=== PATIENT | male | born 1950 | race Caucasian/White ===

== ENCOUNTER 2017-01-06 02:00 | Emergency (ER) | payer MEDICARE, OTHER ==
--- NOTE | 2017-01-06 05:51 | NUR ---
see downtime notes for prior event documention. patient is sleeping comfortably at this time. vss. wound dressing is intact, clean, no drainage.
--- NOTE | 2017-01-06 06:29 | NUR ---
spoke with Scarlett from [facility], report given.
--- NOTE | 2017-01-06 06:37 | NUR ---
medresponse slat pickler is 0900.
--- NOTE | 2017-01-06 07:17 | NUR ---
report given to Celso LAY for ashish.
[2017-01-06 07:40] VITALS: BP 128/68
== END 2017-01-06 08:28 ==
LOC: ER 02:00
DX: S01.111A Laceration without foreign body of right eyelid and periocular area, initial encounter (principal); S09.90XA Unspecified injury of head, initial encounter; W01.198A Fall on same level from slipping, tripping and stumbling with subsequent striking against other object, initial encounter; Y93.89 Activity, other specified; Y92.89 Other specified places as the place of occurrence of the external cause; Y99.9 Unspecified external cause status
CPT/HCPCS: 70450; 71010; 72125; 99284; A4606; Z7610

== ENCOUNTER 2017-01-14 15:58 | Inpatient (IN) | payer MEDICARE, OTHER ==
[~2017-01-14] VITALS: Ht 182.9 cm; Wt 61.7 kg
--- NOTE | 2017-01-14 16:09 | NUR ---
pt otoniel from [facility] to er bed 10. c/o r hip pain s/p mechanical fall while ambulating using the rail. states he missed his bed and fell on his r side. no ko. no other cpmplaints. asking for pain medication. awaiting md painter.
--- NOTE | 2017-01-14 17:18 | NUR ---
rai valentine at bedside for eval.
--- NOTE | 2017-01-14 17:18 | NUR ---
Ludwin noyola in [facility] - 01/14/17 at 1720 by GABRIELLE rai barger at bedside for inocencio.
[2017-01-14] MEDS ORDERED: LORAZEPAM INJ 2 MG/ML VIAL ONE ×3 (17:42→22:11)
--- NOTE | 2017-01-14 17:42 | NUR ---
pt is having active seizure. ativan 2mg im given to lt deltoid per rai valentine verbal order.
--- NOTE | 2017-01-14 17:45 | NUR ---
pt placed on seizure precaution.
[2017-01-14] MEDS ORDERED: HYDROMORPHONE INJ 2 MG/ML DISP.SYRIN ONE (18:12)
[2017-01-14 18:15] LABS: BASOPHILS % (AUTO) 0.3 % (0.0-2.0); EOSINOPHILS % (AUTO) 0.3 % (0.0-6.0); HEMATOCRIT 44 % (39-51); LYMPHOCYTES # (AUTO) 1.7 /CMM (0.8-4.8); LYMPHOCYTES % (AUTO) 15.8 % (20.0-44.0); MEAN CORPUSCULAR HEMOGLOBIN 31 PG (26.0-33.0); MEAN CORPUSCULAR HGB CONC 34 g/dl (31.0-36.0); MEAN CORPUSCULAR VOLUME 93 fL (80-96); MONOCYTES # (AUTO) 1.1 /CMM (0.1-1.30); MONOCYTES % (AUTO) 10.5 % (2.0-12.0); NEUTROPHILS # (AUTO) 7.8 /CMM (1.8-8.9); NEUTROPHILS % (AUTO) 73.1 % (43.0-81.0); PLATELET COUNT (AUTO) 169 /CMM (150-450); RDW COEFFICIENT OF VARIATION 11.3 (11.5-15.0); RED BLOOD CELL COUNT(AUTO) 4.79 MIL/uL (4.5-6.0); WHITE BLOOD COUNT (AUTO) 10.6 K/uL (4.3-11.0)
[2017-01-14] MEDS: HYDROMORPHONE HCL 2 MG TABLET PO PRN (18:15)
--- NOTE | 2017-01-14 18:16 | NUR ---
radiology at bedside for rt hip/rt pelvic xray.
[2017-01-14] MEDS ORDERED: HYDROMORPHONE 1 MG/1 ML DISP.SYRIN IV ONE (18:30)
[2017-01-14 18:32] LABS: ALBUMIN 4.1 g/dL (3.4-5.0); BILIRUBIN,DIRECT 0.5 mg/dL (0.0-0.2); BILIRUBIN,TOTAL 1.3 mg/dL (0.2-1.0); CALCIUM, SERUM 8.6 mg/dL (8.5-10.1); CREATININE 1.2 mg/dL (0.6-1.3); POTASSIUM 3.5 mmol/L (3.5-5.1); TOTAL PROTEIN, SERUM 7.1 g/dL (6.4-8.2)
[2017-01-14] MEDS ORDERED: LEVE100023 PO (18:35)
[2017-01-14] MEDS ORDERED: LORA1TAB PO (18:35)
[2017-01-14] MEDS ORDERED: ATOR10TA PO (18:35)
[2017-01-14] MEDS ORDERED: LAMO100T PO (18:35)
[2017-01-14] MEDS ORDERED: GABA-534 PO (18:35)
[2017-01-14] MEDS ORDERED: SERT25TA5 PO (18:35)
[2017-01-14] MEDS ORDERED: OXYC30TA86 PO (18:35)
[2017-01-14] MEDS ORDERED: LORAZEPAM INJ 2 MG/ML VIAL IM ONE (19:00)
[2017-01-14 19:07] LABS: INR 1.13 (0.87-1.13); PROTHROMBIN TIME 12.2 SECS (9.5-12.7)
[2017-01-14 20:50] VITALS: BP 133/80
--- NOTE | 2017-01-14 20:55 | NUR ---
report given to jose. pt awaiting transfer to floor.
--- NOTE | 2017-01-14 21:05 | NUR ---
PAGED UKRAINIAN FOLK ARTS INSTRUCTOR DOCTOR FOR DR. SNIDER
--- NOTE | 2017-01-14 21:34 | NUR ---
PAGED DR MYRIAM SNIDER
--- NOTE | 2017-01-14 22:10 | NUR ---
pt starting to get agitated. restless stating he wants to go home. rai valentine made aware.
--- NOTE | 2017-01-14 22:15 | NUR ---
DR AGATHA ARREOLA.
[2017-01-14] MEDS ORDERED: LORAZEPAM INJ 2 MG/ML VIAL IV ONE (22:30)
--- NOTE | 2017-01-14 22:50 | NUR ---
RN ADMITTING TELE NOTES ADMITTED 66 YR OLD MALE, AOX4 ON RM AIR NO DISTRESS, C/O OF R-HIP PAIN, S/P FALL, C/C UPON COMING TO ER IS R-HIP PAIN, AFTER GLF ON THE R-HIP, C/O PAIN IN ER DILAUDID AND ATIVAN GIVEN IN ER, PT HAD EPISODE OF SEIZURE, IMMEDIATE FALL AND SEIZURE PRECAUTION MEASURES UNDER IN PLACE PER PROTOCOL. PT ON BED REST UNABLE TO AMBULATE D/T R-HIP FX, SKIN INTACT, WITH SLIGHT SACRAL REDNESS NOTED, PICS TAKEN AND PLACED IN PT CHART. KEPT CLEAN AND DRY, ALL NEEDS MET, ADMITTING DR YESSENIA BADILLO NOTIFIED WITH ADMITTING ORDERS CARRIED OUT. PAIN MEDICATION GIVEN. PT APPEARS COMFORTABLE ABLE TO SLEEP WITH NO PAIN V/S STABLE.
[2017-01-14 23:00] VITALS: BP 133/80
[2017-01-14] MEDS ORDERED: IPRA3AMP NEB (23:20)
[2017-01-14] MEDS ORDERED: HYDR4TAB57 PO (23:20)
[2017-01-14] MEDS ORDERED: OXYC20TA73 PO (23:20)
[2017-01-14] MEDS ORDERED: ATOR20TA PO (23:20)
[2017-01-14] MEDS ORDERED: LEVE500T20 PO (23:20)
[2017-01-14] MEDS ORDERED: ASPI81TA2 PO (23:20)
[2017-01-14] MEDS ORDERED: LAMO200T39 PO (23:20)
[2017-01-14] MEDS ORDERED: PHEN100C4 PO (23:20)
[2017-01-14] MEDS ORDERED: LORAZEPAM 1 MG TABLET PO SCH (23:30)
[2017-01-15] VITALS (7 sets, daily range): BP systolic 122–156; BP diastolic 74–95
[2017-01-15] MEDS ORDERED: LORAZEPAM 1 MG TABLET ONE (00:25)
[2017-01-15] MEDS: HYDROMORPHONE HCL 2 MG TABLET PO PRN ×2 (00:31→05:44)
--- NOTE | 2017-01-15 06:38 | NUR ---
RN CLOSING TELE NOTES ENDORSED 66 YR OLD MALE, AOX4 ON RM AIR NO DISTRESS, C/O OF R-HIP PAIN, S/P FALL, C/C UPON COMING TO ER IS R-HIP PAIN, AFTER GLF ON THE R-HIP, C/O PAIN IN ER DILAUDID AND ATIVAN GIVEN IN ER, PT HAD EPISODE OF SEIZURE, IMMEDIATE FALL AND SEIZURE PRECAUTION MEASURES UNDER IN PLACE PER PROTOCOL. PT ON BED REST UNABLE TO AMBULATE D/T R-HIP FX, SKIN INTACT, WITH SLIGHT SACRAL REDNESS NOTED, PICS TAKEN AND PLACED IN PT CHART. KEPT CLEAN AND DRY, ALL NEEDS MET, ADMITTING DR YESSENIA BADILLO NOTIFIED WITH ADMITTING ORDERS CARRIED OUT. PAIN MEDICATION GIVEN. PT APPEARS COMFORTABLE ABLE TO SLEEP WITH NO PAIN V/S STABLE.
[2017-01-15 07:01] LABS: BASOPHILS % (AUTO) 0.2 % (0.0-2.0); EOSINOPHILS % (AUTO) 0.2 % (0.0-6.0); HEMATOCRIT 43 % (39-51); HEMOGLOBIN 14.5 g/dL (13.5-17.5); LYMPHOCYTES # (AUTO) 1.8 /CMM (0.8-4.8); LYMPHOCYTES % (AUTO) 18.2 % (20.0-44.0); MEAN CORPUSCULAR HEMOGLOBIN 32 PG (26.0-33.0); MEAN CORPUSCULAR HGB CONC 34 g/dl (31.0-36.0); MEAN CORPUSCULAR VOLUME 94 fL (80-96); MONOCYTES % (AUTO) 10.5 % (2.0-12.0); NEUTROPHILS % (AUTO) 70.9 % (43.0-81.0); PLATELET COUNT (AUTO) 153 /CMM (150-450); RDW COEFFICIENT OF VARIATION 12.2 (11.5-15.0); RED BLOOD CELL COUNT(AUTO) 4.57 MIL/uL (4.5-6.0); WHITE BLOOD COUNT (AUTO) 9.9 K/uL (4.3-11.0)
[2017-01-15 07:19] LABS: ALBUMIN 3.8 g/dL (3.4-5.0); BILIRUBIN,TOTAL 1.4 mg/dL (0.2-1.0); CALCIUM, SERUM 8.4 mg/dL (8.5-10.1); CREATININE 0.7 mg/dL (0.6-1.3); POTASSIUM 3.8 mmol/L (3.5-5.1); TOTAL PROTEIN, SERUM 6.7 g/dL (6.4-8.2)
[2017-01-15 07:46] LABS: THYROID STIMULATING HORMONE 0.728 uIU/mL (0.358-3.74)
--- NOTE | 2017-01-15 08:00 | NUR ---
GROUP LEADER SEMICONDUCTOR TESTING NOTES PATIENT IN BED SLEEPING AOX4 ON RM AIR NO DISTRESS, C/O OF R-HIP PAIN BACK PAIN AND BILATERAL LEG PAIN, S/P FALL, PATIENT STABLE AT THIS TIME RN AWAITING ORDERED , PAIN MEDICATION D/C DR. MCKEON NOTIFIED PAIN MEDICATION GIVEN. PT BED IN LOWEST POSTION CALL LIGHT WITH IN REACH RN WILL CONTINUE TO FOLLOW
[2017-01-15] MEDS ORDERED: IPRATROPIUM NEB FS 0.5 MG/2.5 ML AMPUL.NEB NEB PRN (08:30)
[2017-01-15] MEDS: GABAPENTIN 300 MG CAPSULE PO SCH ×3 (08:56→16:43)
[2017-01-15] MEDS: PHENYTOIN EXTENDED RELEASE 100 MG CAPSULE PO SCH ×2 (08:56→16:43)
[2017-01-15] MEDS: LamoTRIgine 100 MG TABLET PO SCH ×2 (08:56→16:43)
[2017-01-15] MEDS: oxyCODONE HCL SR 20MG TAB.SR.12H PO SCH ×2 (08:56→20:13)
[2017-01-15] MEDS: LEVETIRACETAM (250 MG) 250 MG TABLET PO SCH ×2 (08:57→21:05)
[2017-01-15] MEDS: SERTRALINE HCL 25 MG TABLET PO SCH (08:57)
[2017-01-15] MEDS ORDERED: HYDROMORPHONE 1 MG/1 ML DISP.SYRIN IV PRN (10:00)
--- NOTE | 2017-01-15 10:00 | NUR ---
RN NOTE PATIENT COMPLAINING OF PAIN DILAUDID GIVEN FOR PRN PATIENT PATIENT STABLE AT THIS TIME
[2017-01-15] MEDS: HYDROMORPHONE INJ 2 MG/ML DISP.SYRIN IV PRN ×3 (11:36→23:37)
[2017-01-15] MEDS: LORAZEPAM 1 MG TABLET PO SCH ×2 (13:06→21:05)
[2017-01-15] MEDS ORDERED: ALBUTEROL FS 2.5 MG/3 ML VIAL.NEB NEB PRN (13:30)
--- NOTE | 2017-01-15 18:00 | NUR ---
RN NOTE PATIENT COMPLAINING OF PAIN DILAUDID GIVEN FOR PRN PATIENT PATIENT STABLE AT THIS TIME
--- NOTE | 2017-01-15 18:50 | NUR ---
RN NOTE SURGERY ORDERED FOR PATIENT RN UNABLE TO OBTAIN CONSENT FOR SURGERY AT THIS TIME CHARGE NURSE NBA NOTIFIED , RN WILL ENDORSE CARE TO PM RN , TO OBTAIN SIGNATURE.
--- NOTE | 2017-01-15 19:00 | NUR ---
RN CLOSING NOTE PATIENT STABLE AT THIS TIME NO DISTRESS NOTED PATIENT NEEDS ATTENDED, ALL CARE RENDERED , MEDICATION ADMINISTERED UPON PATIENTS REQUEST, CALL LIGHT WITHIN REACH PATIENT VERBALIZE IN PAIN RN WILL ENDORSES CARE TO PM RN
--- NOTE | 2017-01-15 20:00 | NUR ---
CARROTER NOTES RECEIVED PTS ON BED AWAKE ALERT AND VERBALLY RESPONSIVE . ON TELE SR ON THE MONITOR , NO SOB NO DISTRESS NOTED C/O PAIN ON R HIP , PAIN MGT GIVEN ORDERED. V/S STABLE AFEBRILE ALL DUE MEDS GIVEN ORDERED , ALL NEEDS ATTENDED TOO CALL LIGHT WITHIN REACH , KEPT PTS CLEAN DRY AND COMFORTABLE , WILL CONTINUE TO MONITOR PTS.NON WEIGHT BEARING ON RLE MAINTAINED.
[2017-01-15] MEDS: ATORVASTATIN 10 MG TABLET PO SCH (21:05)
[2017-01-15] MEDS ORDERED: NS 0.9% IV STA (21:45)
[2017-01-15] MEDS ORDERED: PHENYTOIN SODIUM IV STA (21:45)
[2017-01-15] MEDS ORDERED: PHENYTOIN SODIUM IV 50 MG/ML VIAL ONE (22:13)
[2017-01-15] MEDS: IV D5/ 0.9% NACL 1,000 ML IV PRN (22:22)
[2017-01-16] VITALS: BP_SYST 133; BP_DIAS 90; BP_DIAS 91
--- NOTE | 2017-01-16 | NUR ---
telegraphic instrument supervisor notes npo post mn instructed pts verbalized understanding,consent for procedure obtained.
--- NOTE | 2017-01-16 02:40 | NUR ---
telex operator notes body check done and care rendered , pts on ivf of d5ns at 125cc/hr infusing well, will continue to monitor pts.
[2017-01-16 04:00] VITALS: BP 109/86
[2017-01-16] MEDS: HYDROMORPHONE INJ 2 MG/ML DISP.SYRIN IV PRN ×5 (05:23→23:45)
[2017-01-16] MEDS: LORAZEPAM 1 MG TABLET PO SCH ×3 (05:23→20:54)
--- NOTE | 2017-01-16 05:30 | NUR ---
telephone instrument supervisor notes when trying to waste 1 mg of dilaudid in omnicell I was not able to put 1 mg in the waste window before pressing record waste. I tried to fix with charge nurse, but was still unable to waste on omnicell. dilaudid 1 mg iv push given as ordered for right hip pain and the other 1 mg wasted in designated container in med room with charge nurse Marian RN as witness.
--- NOTE | 2017-01-16 06:35 | NUR ---
telesales professional notes pts on bed awake and responsive , npo maintained , remains on ivf d5ns at 125cc/hr infusing well , v/s stable , will endorse to rn day shift for continuity of care.
[2017-01-16 06:38] LABS: BASOPHILS % (AUTO) 0.4 % (0.0-2.0); EOSINOPHILS # (AUTO) 0.1 /CMM (0.0-0.7); EOSINOPHILS % (AUTO) 1.2 % (0.0-6.0); HEMATOCRIT 41 % (39-51); HEMOGLOBIN 13.7 g/dL (13.5-17.5); LYMPHOCYTES # (AUTO) 2.2 /CMM (0.8-4.8); LYMPHOCYTES % (AUTO) 24.3 % (20.0-44.0); MEAN CORPUSCULAR HEMOGLOBIN 32 PG (26.0-33.0); MEAN CORPUSCULAR HGB CONC 34 g/dl (31.0-36.0); MEAN CORPUSCULAR VOLUME 95 fL (80-96); MONOCYTES # (AUTO) 1.1 /CMM (0.1-1.30); MONOCYTES % (AUTO) 11.5 % (2.0-12.0); NEUTROPHILS # (AUTO) 5.7 /CMM (1.8-8.9); NEUTROPHILS % (AUTO) 62.6 % (43.0-81.0); PLATELET COUNT (AUTO) 141 /CMM (150-450); RDW COEFFICIENT OF VARIATION 12.4 (11.5-15.0); RED BLOOD CELL COUNT(AUTO) 4.31 MIL/uL (4.5-6.0); WHITE BLOOD COUNT (AUTO) 9.2 K/uL (4.3-11.0)
[2017-01-16 06:45] LABS: ALBUMIN 3.4 g/dL (3.4-5.0); BILIRUBIN,TOTAL 0.9 mg/dL (0.2-1.0); CREATININE 0.7 mg/dL (0.6-1.3); MAGNESIUM 2.1 mg/dL (1.8-2.4); PHOSPHORUS 3.2 mg/dL (2.5-4.9); POTASSIUM 3.8 mmol/L (3.5-5.1); TOTAL PROTEIN, SERUM 6.3 g/dL (6.4-8.2)
[2017-01-16 08:00] VITALS: BP 135/81
[2017-01-16] MEDS: LEVETIRACETAM (250 MG) 250 MG TABLET PO SCH ×2 (08:26→20:53)
[2017-01-16] MEDS: PHENYTOIN EXTENDED RELEASE 100 MG CAPSULE PO SCH ×3 (08:26→18:15)
[2017-01-16] MEDS: LamoTRIgine 100 MG TABLET PO SCH ×2 (08:26→18:15)
[2017-01-16] MEDS: oxyCODONE HCL SR 20MG TAB.SR.12H PO SCH ×2 (08:27→20:53)
[2017-01-16] MEDS: GABAPENTIN 300 MG CAPSULE PO SCH ×3 (08:27→18:15)
[2017-01-16] MEDS: SERTRALINE HCL 25 MG TABLET PO SCH (08:27)
--- NOTE | 2017-01-16 08:30 | NUR ---
INITIAL PRESS BRAKE OPERATOR NOTES PATIENT IN BED AWAKE AND ALERT AOX4 ON RM AIR NO DISTRESS, C/O OF R-HIP PAIN BACK PAIN AND BILATERAL LEG PAIN, S/P FALL, PATIENT STABLE AT THIS TIME RN AWAITING ORDERED , PAIN MEDICATION GIVEN. PT BED IN LOWEST POSITION CALL LIGHT WITH IN REACH RN WILL CONTINUE TO FOLLOW
[2017-01-16 14:00] VITALS: BP 133/76
[2017-01-16 15:33] LABS: APPEARANCE,URINE SL CLOUDY (CLEAR); BILIRUBIN,URINE NEGATIVE (NEGATIVE); BLOOD, URINE 1+ Ery/uL (NEGATIVE); COLOR,URINE DARK YELLO (YELLOW); KETONES,URINE NEGATIVE (NEGATIVE); LEUKOCYTE ESTERASE ,URINE 3+ (NEGATIVE); NITRITE, URINE NEGATIVE (NEGATIVE); PROTEIN,URINE TRACE mg/dl (NEGATIVE); UGLUCOSE NEGATIVE (NEGATIVE)
[2017-01-16 15:57] LABS: BACTERIA,URINE Few /HPF (None Seen); SQUAMOUS EPITHELIAL CELL,UR Few /HPF (None Seen)
[2017-01-16 16:00] VITALS: BP 133/70
--- NOTE | 2017-01-16 18:35 | NUR ---
rn note rn recieved a call from md hall in regards to patient urine culture results stating uti md. request that rn contacted md melendez for orders , rn contact md melendez for orders orders Levaquin 500 mg ivpb daily. rn placed order and read back order for confirmation . rn will continue to follow.
[2017-01-16] MEDS: IV D5/ 0.9% NACL 1,000 ML IV PRN (18:58)
[2017-01-16] MEDS ORDERED: LEVOFLOXACIN 500 MG /D5W 100ML 500 MG in PREMIX 1 EA IV SCH (19:00)
--- NOTE | 2017-01-16 19:30 | NUR ---
MS RN INITIAL NOTES RECEIVED PATIENT ON BED, AWAKE AND ALERT, ABLE TO VERBALIZE NEEDS. PATIENT TOLERATING ROOM AIR WELL, NO SOB OR RESPIRATORY DISTRESS. IV SITE PATENT AND INTACT, SITE FLUSHED WITH NS, FREE FROM ANY S/S OF INFILTRATION OR PHLEBITIS. PLAN OF CARE DISCUSSED WITH THE PATIENT, WHO VERBALIZES UNDERSTANDING REGARDING THE PLAN. CALL LIGHT LEFT WITHIN EASY REACH. BED IN LOWEST AND LOCKED POSITION. WILL CONTINUE TO CLOSELY MONITOR
[2017-01-16 20:00] VITALS: BP 134/96
[2017-01-16] MEDS: ATORVASTATIN 10 MG TABLET PO SCH (20:57)
--- NOTE | 2017-01-16 21:00 | NUR ---
RN NOTES PATIENT NOTED TO REMOVE CONDOM CATHETER. PATIENT INSTRUCTED NOT TO TOUCH THE CONDOM CATHETER. ALL QUESTIONS REGARDING CONDOM CATHETER ANSWERED. WILL MONITOR CLOSELY
[2017-01-17 04:00] VITALS: BP_SYST 134; BP_SYST 136; BP_DIAS 88; BP_DIAS 96
[2017-01-17] MEDS: LORAZEPAM 1 MG TABLET PO SCH ×3 (04:21→22:55)
[2017-01-17] MEDS: IV D5/ 0.9% NACL 1,000 ML IV PRN ×2 (04:21→22:58)
[2017-01-17] MEDS ORDERED: BACITRACIN 50000 UNITS/VIAL ONE (06:39)
[2017-01-17] MEDS ORDERED: BUPIVACAINE MPF 0.5% W/EPI INJ 30 ML VIAL ONE (06:39)
[2017-01-17] MEDS ORDERED: KETOROLAC TROMETHAMINE INJ 30 MG/ML VIAL ONE (06:39)
[2017-01-17 06:47] LABS: BASOPHILS % (AUTO) 0.4 % (0.0-2.0); EOSINOPHILS # (AUTO) 0.1 /CMM (0.0-0.7); EOSINOPHILS % (AUTO) 2.4 % (0.0-6.0); HEMATOCRIT 39 % (39-51); HEMOGLOBIN 13.4 g/dL (13.5-17.5); LYMPHOCYTES # (AUTO) 1.7 /CMM (0.8-4.8); LYMPHOCYTES % (AUTO) 27.7 % (20.0-44.0); MEAN CORPUSCULAR HEMOGLOBIN 32 PG (26.0-33.0); MEAN CORPUSCULAR HGB CONC 34 g/dl (31.0-36.0); MEAN CORPUSCULAR VOLUME 94 fL (80-96); MONOCYTES # (AUTO) 0.8 /CMM (0.1-1.30); MONOCYTES % (AUTO) 13.1 % (2.0-12.0); NEUTROPHILS # (AUTO) 3.5 /CMM (1.8-8.9); NEUTROPHILS % (AUTO) 56.4 % (43.0-81.0); PLATELET COUNT (AUTO) 141 /CMM (150-450); RDW COEFFICIENT OF VARIATION 12.4 (11.5-15.0); RED BLOOD CELL COUNT(AUTO) 4.18 MIL/uL (4.5-6.0); WHITE BLOOD COUNT (AUTO) 6.3 K/uL (4.3-11.0)
--- NOTE | 2017-01-17 06:48 | NUR ---
RN NOTES PATIENT PICKED UP FROM SURGERY TEAM, ALL CONSENTS SIGNED, PATIENT NPO SINCE [place]. PATIENT LEFT UNIT VIA GURNEY IN STABLE CONDITION
[2017-01-17] MEDS ORDERED: FENTANYL PF 100MCG/2ML AMPUL ONE (06:57)
[2017-01-17] MEDS ORDERED: ROCURONIUM BROMIDE 50 MG/5 ML ONE (06:58)
[2017-01-17] MEDS ORDERED: SUCCINYLCHOLINE CHLORIDE 20 MG/ML VIAL ONE (06:58)
[2017-01-17] MEDS ORDERED: MIDAZOLAM HCL 2 MG/2ML VIAL ONE (06:58)
[2017-01-17 07:26] LABS: BILIRUBIN,TOTAL 1.2 mg/dL (0.2-1.0); CALCIUM, SERUM 7.8 mg/dL (8.5-10.1); CREATININE 0.6 mg/dL (0.6-1.3); POTASSIUM 3.6 mmol/L (3.5-5.1); TOTAL PROTEIN, SERUM 5.8 g/dL (6.4-8.2)
[2017-01-17] MEDS ORDERED: TRANEXAMIC ACID 3,000 MG in SODIUM CHLORIDE IRRIG SOLUTION 70 ML IR ONE (07:30)
--- NOTE | 2017-01-17 09:45 | NUR ---
RN NOTES PATIENT CAME BACK FROM SURGERY VIA HOSPITAL BED. VITAL SIGN STABLE, ZW=827/89, P=91, R=18, T=98.0. DENIES PAIN AT THIS TIME. NO ACUTE DISTRESS, NO SOB NOTED. KEPT PATIENT SAFE AND COMFORTABLE. BED LOCKED, LOW POSITION, SIDERAILS UPX2. CALL LIGHT IN REACH. WILL CONTINUE TO MONITOR ACCORDINGLY
[2017-01-17 10:00] VITALS: BP 128/89
[2017-01-17] MEDS: PHENYTOIN EXTENDED RELEASE 100 MG CAPSULE PO SCH ×3 (10:21→17:04)
[2017-01-17] MEDS: GABAPENTIN 300 MG CAPSULE PO SCH ×3 (10:21→17:04)
[2017-01-17] MEDS: oxyCODONE HCL SR 20MG TAB.SR.12H PO SCH ×2 (10:21→22:55)
[2017-01-17] MEDS: SERTRALINE HCL 25 MG TABLET PO SCH (10:23)
[2017-01-17] MEDS: LEVETIRACETAM (250 MG) 250 MG TABLET PO SCH ×2 (10:23→22:54)
[2017-01-17] MEDS: LamoTRIgine 100 MG TABLET PO SCH ×2 (10:24→17:03)
[2017-01-17 11:06] VITALS: BP 128/89
[2017-01-17] MEDS: HYDROMORPHONE INJ 2 MG/ML DISP.SYRIN IV PRN ×2 (11:43→17:14)
[2017-01-17] MEDS: CEFAZOLIN 2 GM in IV NS 0.9% 50 ML IV SCH ×2 (13:27→21:00)
[2017-01-17] MEDS: HYDROMORPHONE HCL 2 MG TABLET PO PRN (14:55)
--- NOTE | 2017-01-17 15:00 | NUR ---
RN NOTES seen by PT, evaluated patient. per PT, maximum assist 2 person.
[2017-01-17 16:00] VITALS: BP 128/81
--- NOTE | 2017-01-17 16:59 | NUR ---
RN NOTES VERIFIED WITH PHARMACY,JOEL FANG TO GIVE CARIDADNOX.
[2017-01-17] MEDS ORDERED: RIVAROXABAN 10 MG TABLET PO SCH (17:00)
[2017-01-17] MEDS: ENOXAPARIN SODIUM 40 MG/0.4 ML DISP.SYRIN SQ SCH (17:06)
--- NOTE | 2017-01-17 19:25 | NUR ---
RN CLOSING NOTES NO CHANGE IN PATIENT'S CONDITION. NO ACUTE DISTRESS, NO SOB NOTED. ALL NEEDS ATTENDED AND PROVIDED. KEPT PATIENT SAFE AND COMFORTABLE. SEIZURE PRECAUTION OBSERVED, PADDED BED RAILS. BED IN LOW POSITION, LOCKED. CALL LIGHT IN REACH. ENDORSED TO NIGHT RN FOR HANS.
--- NOTE | 2017-01-17 19:30 | NUR ---
RN INITIAL NOTES RECEIVED PATIENT IN BED, AWAKE, ALERT AND ORIENTED X 2 TO NAME AND NAME OF THE PRESIDENT, BUT UNABLE TO DESCRIBE CURRENT LOCATION, FORGETFUL. PATIENT REORIENTED NEEDED. PATIENT TOLERATING ROOM AIR WELL, FREE FROM ANY S/S OF RESPIRATORY DISTRESS. LEFT FA IV NOTED TO BE DISLODGED WITH CANNULA INTACT, PRESSURE DRESSING APPLIED, WILL INSERT NEW IV. RIGHT HIP NOTED WITH SURGICAL DRESSING, CLEAN, DRY AND INTACT. BILATERAL LOWER EXTREMITIES NOTED WITH IMMOBILIZER DEVICE, BLE ASSESSED. NOTED WITH OAKES CATHETER DRAINING CLEAR JAYE COLORED URINE TO DRAINAGE BAG VIA GRAVITY. PLAN OF CARE DISCUSSED WITH THE PATIENT, WHO VERBALIZES UNDERSTANDING REGARDING THE PLAN OF CARE. WILL REINFORCE PATIENT TEACHING NEEDED. BED IN LOWEST AND LOCKED POSITION, CALL LIGHT LEFT WITHIN EASY REACH
[2017-01-17 20:00] VITALS: BP 153/93
[2017-01-17] MEDS: ATORVASTATIN 10 MG TABLET PO SCH (22:54)
[2017-01-17] MEDS ORDERED: CEFAZOLIN 2 GM ONE (23:02)
[2017-01-18 04:00] VITALS: BP 131/82
--- NOTE | 2017-01-18 04:48 | NUR ---
RN NOTES - MEDICATION OVERRIDE ANCEF OVERRIDE PERFORMED BY CHARGE NURSE PARISH. IV PIGGYBACK NOT LOCATED IN REFRIGERATOR OR CASSETTE.
[2017-01-18] MEDS ORDERED: CEFAZOLIN 2 GM ONE (04:53)
[2017-01-18] MEDS: CEFAZOLIN 2 GM in IV NS 0.9% 50 ML IV SCH ×3 (05:00→21:10)
[2017-01-18] MEDS: LORAZEPAM 1 MG TABLET PO SCH ×3 (05:01→21:03)
[2017-01-18 06:46] LABS: BILIRUBIN,TOTAL 2.5 mg/dL (0.2-1.0); CALCIUM, SERUM 7.5 mg/dL (8.5-10.1); CREATININE 0.6 mg/dL (0.6-1.3); POTASSIUM 2.9 mmol/L (3.5-5.1); TOTAL PROTEIN, SERUM 5.6 g/dL (6.4-8.2)
[2017-01-18 06:48] LABS: BASOPHILS % (AUTO) 0.1 % (0.0-2.0); EOSINOPHILS % (AUTO) 0.2 % (0.0-6.0); HEMATOCRIT 35 % (39-51); HEMOGLOBIN 11.7 g/dL (13.5-17.5); LYMPHOCYTES # (AUTO) 1.2 /CMM (0.8-4.8); LYMPHOCYTES % (AUTO) 11.9 % (20.0-44.0); MEAN CORPUSCULAR HEMOGLOBIN 32 PG (26.0-33.0); MEAN CORPUSCULAR HGB CONC 34 g/dl (31.0-36.0); MEAN CORPUSCULAR VOLUME 95 fL (80-96); MONOCYTES # (AUTO) 1.3 /CMM (0.1-1.30); MONOCYTES % (AUTO) 12.7 % (2.0-12.0); NEUTROPHILS # (AUTO) 7.7 /CMM (1.8-8.9); NEUTROPHILS % (AUTO) 75.1 % (43.0-81.0); PLATELET COUNT (AUTO) 170 /CMM (150-450); RDW COEFFICIENT OF VARIATION 12.4 (11.5-15.0); RED BLOOD CELL COUNT(AUTO) 3.66 MIL/uL (4.5-6.0); WHITE BLOOD COUNT (AUTO) 10.2 K/uL (4.3-11.0)
--- NOTE | 2017-01-18 07:00 | NUR ---
RN CLOSING NOTES PATIENT RESTING COMFORTABLY IN BED. PATIENT DENIES NEED FOR ADDITIONAL PAIN MANAGEMENT AT THIS TIME. IMMOBILIZER REMAINS IN PLACE, RIGHT HIP DRESSING CLEAN DRY AND INTACT. PATIENT ENDORSED TO THE AM SHIFT NURSE FOR HANS
--- NOTE | 2017-01-18 07:15 | NUR ---
MS RN NOTE: RECEIVED PT RESTING IN BED, EASILY AROUSABLE TO NAME. A&OX2 WITH PERIODS OF CONFUSION. ON RA, RESPIRATIONS EVEN AND UNLABORED WITH NO SOB NOTED. LFA INTACT AND PATENT WITH D5NS RUNNING AT 125 ML/HR. OAKES CATH DRAINING TO GRAVITY WITH CLEAR JAYE URINE. RIGHT HIP NOTED WITH SURGICAL DRESSING, CLEAN, DRY AND INTACT. BLE IMMOBILIZER DEVICE WITH BLE PULSES PRESENT. SEIZURE PRECAUTIONS BED PADDING IN PLACE. BED LOW, LOCKED, X2 SIDE RAILS UP AND CALL LIGHT WITHIN REACH. WILL CONT TO MONITOR.
[2017-01-18 08:00] VITALS: BP 141/85
[2017-01-18] MEDS: SERTRALINE HCL 25 MG TABLET PO SCH (09:29)
[2017-01-18] MEDS: POTASSIUM CHLORIDE 20 MEQ TAB.PRT.SR PO SCH ×4 (09:29→13:00)
[2017-01-18] MEDS: LEVETIRACETAM (250 MG) 250 MG TABLET PO SCH ×2 (09:29→21:10)
[2017-01-18] MEDS: PHENYTOIN EXTENDED RELEASE 100 MG CAPSULE PO SCH ×3 (09:29→16:39)
[2017-01-18] MEDS: oxyCODONE HCL SR 20MG TAB.SR.12H PO SCH ×2 (09:29→21:04)
[2017-01-18] MEDS: GABAPENTIN 300 MG CAPSULE PO SCH ×3 (09:29→16:39)
[2017-01-18] MEDS: LamoTRIgine 100 MG TABLET PO SCH ×2 (09:30→16:39)
[2017-01-18] MEDS: IV D5/ 0.9% NACL 1,000 ML IV PRN (09:33)
[2017-01-18] MEDS: HYDROMORPHONE INJ 2 MG/ML DISP.SYRIN IV PRN ×2 (10:05→19:45)
[2017-01-18] MEDS ORDERED: CEFTRIAXONE 1 G in IV D5W 50 ML IV SCH (11:00)
--- NOTE | 2017-01-18 14:00 | NUR ---
MS RN NOTE: FOUND RIGHT HIP DRESSING REMOVED. WOUND DRY, CLEAN WITH NO REDNESS OR DRAINAGE NOTED. NO NEW ORDERS. WILL CONT TO MONITOR.
[2017-01-18 16:00] VITALS: BP 124/78
[2017-01-18] MEDS: ENOXAPARIN SODIUM 40 MG/0.4 ML DISP.SYRIN SQ SCH (16:44)
--- NOTE | 2017-01-18 19:00 | NUR ---
MS RN NOTE: NO ACUTE CHANGES DURING SHIFT. PT REMAINED A&OX2 WITH PERIODS OF CONFUSION. LFA INTACT AND PATENT WITH D5NS RUNNING AT 125 ML/HR. OAKES CATH DRAINING TO GRAVITY WITH CLEAR JAYE URINE. IMMOBILIZER AND DVT PUMPS IN PLACE. SEIZURE PRECAUTIONS ORDERED. ORDERS CARRIED OUT. WILL ENDORSE TO SHOE PATTERNMAKER NURSE FOR HANS.
--- NOTE | 2017-01-18 19:30 | NUR ---
Secure Abduction pillow as intended and reinforce to patient as to its function.Reported remember being told what the function was,no problems
--- NOTE | 2017-01-18 19:30 | NUR ---
Received patient in the bed.No unusual signs or symptoms observed or reported,except for the c/o right hip pain.Reporting nurse reported that dressing on right hip came off during AM activity.Inquired if MD was informed since it was the original dressing.She said she did not.She spoke to PM Charge Nurse who said it was ok.Right Surgical,hip wound is approximate with c/o tenderness but C/D/I.No redness or swelling observed at the site.
[2017-01-18 20:00] VITALS: BP 139/82
[2017-01-18] MEDS: ATORVASTATIN 10 MG TABLET PO SCH (21:27)
--- NOTE | 2017-01-18 23:00 | NUR ---
Patient has fell asleep after receiving his medications,no problems
--- NOTE | 2017-01-19 03:02 | NUR ---
Requested and received pain medication.Medicated with Dilaudid 1 mg ivp as per MD'd order's,tolerated well.
[2017-01-19] MEDS: HYDROMORPHONE INJ 2 MG/ML DISP.SYRIN IV PRN (03:03)
[2017-01-19 04:00] VITALS: BP 108/74
[2017-01-19] MEDS ORDERED: CEFAZOLIN 2 GM ONE (05:09)
[2017-01-19] MEDS: CEFAZOLIN 2 GM in IV NS 0.9% 50 ML IV SCH (05:14)
[2017-01-19] MEDS: LORAZEPAM 1 MG TABLET PO SCH ×2 (05:44→12:42)
[2017-01-19 06:32] LABS: BASOPHILS % (AUTO) 0.3 % (0.0-2.0); EOSINOPHILS % (AUTO) 0.4 % (0.0-6.0); HEMATOCRIT 32 % (39-51); HEMOGLOBIN 10.9 g/dL (13.5-17.5); LYMPHOCYTES # (AUTO) 1.4 /CMM (0.8-4.8); MEAN CORPUSCULAR HEMOGLOBIN 32 PG (26.0-33.0); MEAN CORPUSCULAR HGB CONC 34 g/dl (31.0-36.0); MEAN CORPUSCULAR VOLUME 95 fL (80-96); MONOCYTES % (AUTO) 10.4 % (2.0-12.0); NEUTROPHILS # (AUTO) 7.5 /CMM (1.8-8.9); NEUTROPHILS % (AUTO) 74.9 % (43.0-81.0); PLATELET COUNT (AUTO) 160 /CMM (150-450); RDW COEFFICIENT OF VARIATION 12.6 (11.5-15.0); RED BLOOD CELL COUNT(AUTO) 3.38 MIL/uL (4.5-6.0)
[2017-01-19 06:56] LABS: ALBUMIN 2.5 g/dL (3.4-5.0); BILIRUBIN,TOTAL 1.5 mg/dL (0.2-1.0); CALCIUM, SERUM 7.8 mg/dL (8.5-10.1); CREATININE 0.6 mg/dL (0.6-1.3); MAGNESIUM 1.7 mg/dL (1.8-2.4); POTASSIUM 3.7 mmol/L (3.5-5.1); TOTAL PROTEIN, SERUM 5.1 g/dL (6.4-8.2)
[2017-01-19 08:00] VITALS: BP 149/98
[2017-01-19] MEDS ORDERED: POTASSIUM CHLORIDE 20 MEQ TAB.PRT.SR PO SCH (09:00)
[2017-01-19] MEDS: LamoTRIgine 100 MG TABLET PO SCH (10:05)
[2017-01-19] MEDS: GABAPENTIN 300 MG CAPSULE PO SCH ×2 (10:05→12:42)
[2017-01-19] MEDS: oxyCODONE HCL SR 20MG TAB.SR.12H PO SCH (10:05)
[2017-01-19] MEDS: LEVETIRACETAM (250 MG) 250 MG TABLET PO SCH (10:05)
[2017-01-19] MEDS: SERTRALINE HCL 25 MG TABLET PO SCH (10:06)
[2017-01-19] MEDS: PHENYTOIN EXTENDED RELEASE 100 MG CAPSULE PO SCH ×2 (10:11→12:42)
[2017-01-19] MEDS: Magnesium 1GM/D5W 100ML PREMIX 100 ML IV SCH ×2 (12:43→14:27)
[2017-01-19 14:00] VITALS: BP 135/98
[2017-01-19] MEDS: HYDROMORPHONE HCL 2 MG TABLET PO PRN (15:52)
== END 2017-01-19 16:41 | DRG 469 ==
LOC: ER 16:00 → TELE1 22:30 → MEDSG1 01-16 10:49
PROVIDERS: ADMIT Internal Medicine Hematology & Oncology; ATTEND Internal Medicine Hematology & Oncology
PROC: 0SRR0JZ Replacement of Right Hip Joint, Femoral Surface with Synthetic Substitute, Open Approach (ICD-10-PCS; principal; 2017-01-17 07:00)
DX: S72.011A Unspecified intracapsular fracture of right femur, initial encounter for closed fracture (principal); N17.0 Acute kidney failure with tubular necrosis; J86.0 Pyothorax with fistula; E46 Unspecified protein-calorie malnutrition; N39.0 Urinary tract infection, site not specified; D69.6 Thrombocytopenia, unspecified; G40.409 Other generalized epilepsy and epileptic syndromes, not intractable, without status epilepticus; W19.XXXA Unspecified fall, initial encounter; D63.8 Anemia in other chronic diseases classified elsewhere; E78.5 Hyperlipidemia, unspecified; F17.210 Nicotine dependence, cigarettes, uncomplicated; Z79.899 Other long term (current) drug therapy; R74.0 Nonspecific elevation of levels of transaminase and lactic acid dehydrogenase [LDH]; B95.2 Enterococcus as the cause of diseases classified elsewhere; Y93.9 Activity, unspecified; Y92.89 Other specified places as the place of occurrence of the external cause; E87.6 Hypokalemia; I25.10 Atherosclerotic heart disease of native coronary artery without angina pectoris; E80.6 Other disorders of bilirubin metabolism; L98.8 Other specified disorders of the skin and subcutaneous tissue; N18.2 Chronic kidney disease, stage 2 (mild)
CPT/HCPCS: 36415; 71010-TC; 72170-TC; 73502; 76700-TC; 80048-TC; 80053-TC; 80061-TC; 80076-TC; 80185-TC; 81000-TC; 82542; 83735-TC; 84100-TC; 84443-TC; 84484-TC; 85025-TC; 85730-TC; 86850-TC; 87081-TC; 87086-TC; 87186-TC; 88305-TC; 88311-TC; 93307-TC; 97110-TC; 97116-TC; 97530-TC; A4216; A4217; A4349; A4606; A6209; A6402; J0330; J0690; J0696; J1165; J1170; J1650; J1885; J1956; J2060; J2250; J2405; J2704; J3010; J3475; J3490; J7030; J7042; J7060; Z7610

== ENCOUNTER 2017-02-18 11:46 | Emergency (ER) | payer MEDICARE, OTHER ==
[~2017-02-18] VITALS: Ht 180.3 cm; Wt 64.0 kg
[~2017-02-18 11:46] MED LIST: ASPI81TA2 PO; ATOR20TA PO; GABA-534 PO; HYDR4TAB57 PO; IPRA3AMP NEB; LAMO200T39 PO; LEVE500T20 PO; LORA1TAB PO; OXYC20TA73 PO; PHEN100C4 PO; SERT25TA5 PO
[2017-02-18] MEDS ORDERED: MORPHINE SULFATE INJ 4 MG/ML DISP.SYRIN IM ONE (12:00)
--- NOTE | 2017-02-18 12:03 | NUR ---
Pt BIB ambulance, briefcase sewer report pt fell -- struck right hip and head, was briefly unconscious. Recent hx of right hip surgery. Pt A&O x 4, PERRLA. Pt denies CP, SOB, dizziness, n/v, no other complaints, no distress noted.
[2017-02-18] MEDS ORDERED: MORPHINE SULFATE INJ 10 MG/ML DISP.SYRIN ONE (12:11)
[2017-02-18] MEDS ORDERED: ERGO50003 PO (12:14)
[2017-02-18] MEDS ORDERED: HYDR4TAB57 PO (12:14)
[2017-02-18] MEDS ORDERED: ALBU8.5H2 IH (12:14)
[2017-02-18] MEDS ORDERED: ALEN70TA45 PO (12:14)
[2017-02-18] MEDS ORDERED: ATOR10TA PO (12:14)
[2017-02-18] MEDS ORDERED: LEVE250T4 PO (12:14)
[2017-02-18] MEDS ORDERED: KETOROLAC TROMETHAMINE INJ 60 MG/2 ML VIAL IM ONE (13:30)
[2017-02-18] MEDS ORDERED: KETOROLAC TROMETHAMINE 15 MG/ML VIAL ONE (13:37)
--- NOTE | 2017-02-18 13:48 | NUR ---
CALLED [facility] FOR TRANSPORT BACK TO [facility], ETA [phone], TRIP #[id number]
--- NOTE | 2017-02-18 15:30 | NUR ---
Gave pt RX and d/c instructions, pt verbalized understanding. Gave report to music worker for transport.
[2017-02-18 15:34] VITALS: BP 120/73
== END 2017-02-18 15:37 | disposition home or self-care (01) ==
LOC: ER 11:48
DX: S70.01XA Contusion of right hip, initial encounter (principal); R42 Dizziness and giddiness; G40.909 Epilepsy, unspecified, not intractable, without status epilepticus; Z79.82 Long term (current) use of aspirin; Z79.891 Long term (current) use of opiate analgesic; Z85.841 Personal history of malignant neoplasm of brain; W06.XXXA Fall from bed, initial encounter; Y93.89 Activity, other specified; Y92.89 Other specified places as the place of occurrence of the external cause; Y99.8 Other external cause status
CPT/HCPCS: 73502; A4606; J1885; J2270; Z7610

== ENCOUNTER 2017-04-11 06:21 | Emergency (ER) | payer MEDICARE, OTHER ==
[~2017-04-11] VITALS: Ht 180.3 cm; Wt 62.6 kg
[~2017-04-11 06:21] MED LIST changes: +ALBU8.5H8 IH; +ALEN70TA45 PO; -ASPI81TA2 PO; +ATOR10TA PO; -ATOR20TA PO; +ERGO500014 PO; -GABA-534 PO; -IPRA3AMP NEB; +LAMO200T PO; -LAMO200T39 PO; +LEVE250T4 PO; -LEVE500T20 PO; -LORA1TAB PO; -PHEN100C4 PO
--- NOTE | 2017-04-11 06:31 | NUR ---
PT BIB AMBULANCE FROM SNF C/O PAINFUL URINATION "10/31". NO SOB NOTED AT THIS TIME. A/O X4 ABLE TO MAKE NEEDS KNOWN. WILL CONTINUE TO MONITOR FOR ANY CHANGES.
--- NOTE | 2017-04-11 06:35 | NUR ---
PT ATTEMPTING TO GIVE URINE VIA URINAL
--- NOTE | 2017-04-11 06:40 | NUR ---
URINE READY FOR P/U. LAB CALLED
[2017-04-11 07:00] LABS: APPEARANCE,URINE CLOUDY (CLEAR); BILIRUBIN,URINE NEGATIVE (NEGATIVE); BLOOD, URINE 3+ Ery/uL (NEGATIVE); COLOR,URINE DARK YELLO (YELLOW); KETONES,URINE NEGATIVE (NEGATIVE); LEUKOCYTE ESTERASE ,URINE 2+ (NEGATIVE); NITRITE, URINE NEGATIVE (NEGATIVE); PH,URINE 6.5 (5.0-8.0); PROTEIN,URINE 2+ mg/dl (NEGATIVE); UGLUCOSE NEGATIVE (NEGATIVE); UROBILINOGEN,URINE 0.2 EU/dL (0.2)
[2017-04-11 07:07] LABS: BACTERIA,URINE 1+ /HPF (None Seen); RBC,URINE 81-100 /HPF (0-2); SQUAMOUS EPITHELIAL CELL,UR None Seen /HPF (None Seen); WBC,URINE 51-80 /HPF (0-3)
[2017-04-11] MEDS: oxyCODONE HCL SR 20MG TAB.SR.12H PO STA (07:18)
--- NOTE | 2017-04-11 07:20 | NUR ---
LAB LEFT BEDSIDE AFTER BLOOD DRAW
[2017-04-11 07:36] LABS: BASOPHILS # (AUTO) 0.1 /CMM (0.0-0.2); EOSINOPHILS # (AUTO) 0.4 /CMM (0.0-0.7); EOSINOPHILS % (AUTO) 5.7 % (0.0-6.0); HEMATOCRIT 42 % (39-51); HEMOGLOBIN 14.2 g/dL (13.5-17.5); LYMPHOCYTES # (AUTO) 1.9 /CMM (0.8-4.8); LYMPHOCYTES % (AUTO) 28.2 % (20.0-44.0); MEAN CORPUSCULAR HEMOGLOBIN 31 PG (26.0-33.0); MEAN CORPUSCULAR HGB CONC 34 g/dl (31.0-36.0); MEAN CORPUSCULAR VOLUME 92 fL (80-96); MONOCYTES # (AUTO) 0.6 /CMM (0.1-1.30); MONOCYTES % (AUTO) 8.8 % (2.0-12.0); NEUTROPHILS # (AUTO) 3.9 /CMM (1.8-8.9); NEUTROPHILS % (AUTO) 56.3 % (43.0-81.0); PLATELET COUNT (AUTO) 233 /CMM (150-450); RDW COEFFICIENT OF VARIATION 12.5 (11.5-15.0); RED BLOOD CELL COUNT(AUTO) 4.57 MIL/uL (4.5-6.0); WHITE BLOOD COUNT (AUTO) 6.9 K/uL (4.3-11.0)
[2017-04-11 07:47] LABS: CALCIUM, SERUM 8.5 mg/dL (8.5-10.1); CREATININE 0.9 mg/dL (0.6-1.3); POTASSIUM 3.8 mmol/L (3.5-5.1)
--- NOTE | 2017-04-11 08:13 | NUR ---
DR AGATHA ARREOLA FOR DR CAMACHO
--- NOTE | 2017-04-11 08:43 | NUR ---
dr severino/on-call paged again
--- NOTE | 2017-04-11 08:50 | NUR ---
Patient is resting comfortably in bed with eyes closed. Easily aroused. VSS
--- NOTE | 2017-04-11 09:04 | NUR ---
MADE FOLLOW UP CALL TO DR SNIDER
--- NOTE | 2017-04-11 09:11 | NUR ---
CALLED FOR TRANSPORT. ETA 30-35 MINUTES
--- NOTE | 2017-04-11 09:35 | NUR ---
FOOD TRAY PROVIDED AT .
--- NOTE | 2017-04-11 09:36 | NUR ---
[facility] CALLED NEW ETA [phone]
[2017-04-11] MEDS: FOSFOMYCIN TROMETHAMINE 3 G/PKT PACKET PO ONE (10:06)
[2017-04-11 10:45] VITALS: BP 150/93
--- NOTE | 2017-04-11 10:45 | NUR ---
Patient discharged to [facility] TO home in stable condition. Written and verbal after care instructions given. Patient AND EMS verbalized understanding of instruction.
== END 2017-04-11 10:46 | disposition home or self-care (01) ==
LOC: ER 06:26
DX: N39.0 Urinary tract infection, site not specified (principal); R31.29 Other microscopic hematuria; G40.909 Epilepsy, unspecified, not intractable, without status epilepticus; Z85.841 Personal history of malignant neoplasm of brain; Z98.890 Other specified postprocedural states
CPT/HCPCS: 36415; 80048; 81001; 85025; 87077; 87086; 87186; 99284; A4606; 81000-TC; Z7610

== ENCOUNTER 2017-11-13 13:57 | Emergency (ER) | payer MEDICARE, OTHER ==
[~2017-11-13] VITALS: Ht 177.8 cm; Wt 61.2 kg
--- NOTE | 2017-11-13 14:10 | NUR ---
[facility] FROM [facility] FOR ABD PAIN W/ DYSURIA X 3 WKS. DENIES HEMATURIA. A/OX 3, BREATHING EVEN AND UNLABORED. NO SOB, NAD, VITALS STABLE. SAFETY AND COMFORT MEASURES IN PLACE. AWAITING MD ORDERS.
[2017-11-13] MEDS ORDERED: MORPHINE SULFATE INJ 2 MG/ML DISP.SYRIN IV ONE (14:30)
[2017-11-13] MEDS ORDERED: MORPHINE SULFATE INJ 2 MG/ML DISP.SYRIN ONE (14:36)
--- NOTE | 2017-11-13 14:40 | NUR ---
NEW IV STARTED ON LEFT HAND, 20G. BLOOD DRAWN AND SENT TO LAB.
[2017-11-13 14:41] LABS: BASOPHILS % (AUTO) 0.3 % (0.0-2.0); EOSINOPHILS % (AUTO) 0.9 % (0.0-6.0); HEMATOCRIT 40 % (39-51); HEMOGLOBIN 13.9 g/dL (13.5-17.5); LYMPHOCYTES # (AUTO) 1.7 /CMM (0.8-4.8); LYMPHOCYTES % (AUTO) 22.8 % (20.0-44.0); MEAN CORPUSCULAR HEMOGLOBIN 33 PG (26.0-33.0); MEAN CORPUSCULAR HGB CONC 35 g/dl (31.0-36.0); MEAN CORPUSCULAR VOLUME 94 fL (80-96); MONOCYTES # (AUTO) 0.5 /CMM (0.1-1.30); MONOCYTES % (AUTO) 6.5 % (2.0-12.0); NEUTROPHILS % (AUTO) 69.5 % (43.0-81.0); PLATELET COUNT (AUTO) 219 /CMM (150-450); RDW COEFFICIENT OF VARIATION 12.3 (11.5-15.0); RED BLOOD CELL COUNT(AUTO) 4.26 MIL/uL (4.5-6.0); WHITE BLOOD COUNT (AUTO) 7.3 K/uL (4.3-11.0)
[2017-11-13 14:46] LABS: BILIRUBIN,URINE MODERATE (NEGATIVE); BLOOD, URINE Large Ery/uL (NEGATIVE); KETONES,URINE 15 (NEGATIVE); LEUKOCYTE ESTERASE ,URINE Small (NEGATIVE); NITRITE, URINE Positive (NEGATIVE); PROTEIN,URINE >=300 mg/dl (NEGATIVE); UGLUCOSE Negative (NEGATIVE)
[2017-11-13 14:47] LABS: APPEARANCE,URINE Turbid (CLEAR); COLOR,URINE Dark Yellow (YELLOW)
[2017-11-13 14:51] LABS: CALCIUM, SERUM 8.4 mg/dL (8.5-10.1); CREATININE 1.1 mg/dL (0.6-1.3); POTASSIUM 3.6 mmol/L (3.5-5.1)
[2017-11-13 14:53] LABS: RBC,URINE 80-100 /HPF (0-2)
[2017-11-13 14:54] LABS: BACTERIA,URINE Few /HPF (None Seen); SQUAMOUS EPITHELIAL CELL,UR Few /HPF (None Seen); WBC,URINE 20-40 /HPF (0-3)
[2017-11-13 14:57] LABS: ALBUMIN 3.4 g/dL (3.4-5.0); BILIRUBIN,DIRECT 0.2 mg/dL (0.0-0.2); BILIRUBIN,TOTAL 0.5 mg/dL (0.2-1.0); TOTAL PROTEIN, SERUM 6.4 g/dL (6.4-8.2)
--- NOTE | 2017-11-13 15:07 | NUR ---
PATIENT TAKENT TO CT VIA STRETCHER.
--- NOTE | 2017-11-13 15:16 | NUR ---
PATIENT RETURNED FROM CT IN STABLE CONDITION.
[2017-11-13] MEDS ORDERED: CEFTRIAXONE 1GM BAG (ER ONLY) 1 GM/50 ML PIGGYBACK IV ONE (17:30)
[2017-11-13] MEDS ORDERED: oxyCODONE/APAP (5/325 MG) 1 UDTAB TABLET ONE (17:42)
[2017-11-13] MEDS ORDERED: oxyCODONE/APAP (5/325 MG) 1 UDTAB TABLET PO ONE (18:00)
--- NOTE | 2017-11-13 19:13 | NUR ---
REPORT GIVEN TO MOISES LAY FOR HANS.
--- NOTE | 2017-11-13 19:46 | NUR ---
CALLED [facility] FOR TRANSPORT ETA OF [phone] WAS GIVEN. TRIP#[id number]
--- NOTE | 2017-11-13 20:30 | NUR ---
PATIENT IS STABLE VSS NAD AWAITING TAPE TRANSFERRER
[2017-11-13 22:13] VITALS: BP 141/66
== END 2017-11-13 22:13 ==
LOC: ER 13:59
DX: N13.2 Hydronephrosis with renal and ureteral calculous obstruction (principal); N39.0 Urinary tract infection, site not specified; G40.909 Epilepsy, unspecified, not intractable, without status epilepticus; Z85.841 Personal history of malignant neoplasm of brain
CPT/HCPCS: 36415; 74176; 80048; 80076; 81001; 83690; 85025; 87077; 87086; 87186; 96365; 96375; 99285; A4606; J0696; J2270; 81000-TC; Z7610

== ENCOUNTER 2018-02-07 18:12 | Inpatient (IN) | payer MEDICARE, OTHER ==
[~2018-02-07] VITALS: Ht 182.9 cm; Wt 63.5 kg
--- NOTE | 2018-02-07 18:15 | NUR ---
PT BIB PRIVATE AMBULANCE FROM [facility]. PER REPORT, WORSENING CONFUSION AND GENERALIZED WEAKNESS. PT IS AAOX3 UPON INITIAL ASSSESSMENT. C/O UPPER BACK PAIN. DENIES TRAUMA. PLACED ON MONITOR. AWAITING MD JERRY.
--- NOTE | 2018-02-07 18:35 | NUR ---
RAMILA STUDIO CONTROL OPERATOR AT BEDSIDE FOR EVAL.
[2018-02-07 18:51] LABS: BASOPHILS % (AUTO) 0.4 % (0.0-2.0); EOSINOPHILS % (AUTO) 0.9 % (0.0-6.0); HEMATOCRIT 39 % (39-51); HEMOGLOBIN 13.1 g/dL (13.5-17.5); LYMPHOCYTES # (AUTO) 0.9 /CMM (0.8-4.8); LYMPHOCYTES % (AUTO) 13.5 % (20.0-44.0); MEAN CORPUSCULAR HGB CONC 34 g/dl (31.0-36.0); MEAN CORPUSCULAR VOLUME 94 fL (80-96); MONOCYTES # (AUTO) 0.4 /CMM (0.1-1.30); MONOCYTES % (AUTO) 5.2 % (2.0-12.0); NEUTROPHILS # (AUTO) 5.5 /CMM (1.8-8.9); PLATELET COUNT (AUTO) 241 /CMM (150-450); RDW COEFFICIENT OF VARIATION 12.2 (11.5-15.0); RED BLOOD CELL COUNT(AUTO) 4.09 MIL/uL (4.5-6.0); WHITE BLOOD COUNT (AUTO) 6.9 K/uL (4.3-11.0)
--- NOTE | 2018-02-07 18:51 | NUR ---
PT TO RADIOLOGY FOR HEAD CT SCAN VIA DAVE
[2018-02-07] MEDS ORDERED: ONDANSETRON HCL/PF 4 MG/2 ML VIAL ONE (18:52)
[2018-02-07] MEDS ORDERED: MORPHINE SULFATE INJ 4 MG/ML DISP.SYRIN ONE (18:52)
[2018-02-07] MEDS ORDERED: ONDANSETRON HCL/PF 4 MG/2 ML VIAL IV ONE (19:00)
[2018-02-07] MEDS ORDERED: MORPHINE SULFATE INJ 2 MG/ML DISP.SYRIN IV ONE (19:00)
[2018-02-07 19:05] LABS: CALCIUM, SERUM 8.7 mg/dL (8.5-10.1); CARBON DIOXIDE 31 mmol/L (21-32); CHLORIDE 106 mmol/L (98-107); CREATININE 1.1 mg/dL (0.6-1.3); GLUCOSE 114 mg/dL (74-106); POTASSIUM 3.9 mmol/L (3.5-5.1); SODIUM SERUM 142 mmol/L (136-145); UREA NITROGEN, BLOOD 17 mg/dL (7-18)
[2018-02-07 19:07] LABS: INR 1.09 (0.85-1.15)
[2018-02-07 19:11] LABS: ALANINE AMINOTRANSFERASE 43 U/L (12-78); ALKALINE PHOSPHATASE 143 U/L (46-116); ASPARTATE AMINOTRANSFERASE 37 U/L (15-37); BILIRUBIN,DIRECT 0.2 mg/dL (0.0-0.2); TOTAL PROTEIN, SERUM 6.2 g/dL (6.4-8.2)
[2018-02-07 19:15] LABS: TROPONIN I < 0.017 ng/mL (0.00-0.056)
[2018-02-07 19:17] LABS: BILIRUBIN,TOTAL 0.2 mg/dL (0.2-1.0)
--- NOTE | 2018-02-07 19:23 | NUR ---
REPORT GIVEN TO AIXA LAY FOR HANS.
--- NOTE | 2018-02-07 19:24 | NUR ---
Ludwin noyola in EDM - 02/07/18 at 1927 by AMOS RECEIVED REPORT FROM ROSANNE CABRAL FOR HANS. PT RESTING IN BED WITH NO S/S OF DISTRESS NOTED. WILL CONTINUE TO MONITOR PT
--- NOTE | 2018-02-07 19:27 | NUR ---
RECEIVED REPORT FROM ROSANNE GARCIA FOR HANS. PT RESTING IN BED WITH NO S/S OF DISTRESS NOTED. WILL CONTINUE TO MONITOR PT
--- NOTE | 2018-02-07 20:41 | NUR ---
PT IS ASSIGNED TO TELE RM#: [id number], DX: RULE OUT CVA / ALOC, AND ACCEPTING: KISHORE ANDERSON NP
--- NOTE | 2018-02-07 20:55 | NUR ---
REPORT GIVEN TO FREDRICK TOLEDO FOR HANS
[2018-02-07 21:00] VITALS: BP 144/94
[2018-02-07] MEDS: LEVETIRACETAM (250 MG) 250 MG TABLET PO SCH (22:49)
[2018-02-07] MEDS: ATORVASTATIN 10 MG TABLET PO SCH (22:49)
[2018-02-07] MEDS: oxyCODONE HCL SR 20MG TAB.SR.12H PO SCH (22:50)
[2018-02-08] VITALS (7 sets, daily range): BP systolic 114–133; BP diastolic 71–83
--- NOTE | 2018-02-08 07:00 | NUR ---
MANAGER WEALTH MANAGEMENT INITIAL NOTES RECEIVED PT IN BED, ON ROOM AIR. NOT IN RESP DISTRESS. LUNG SOUNDS DIMINISHED. ACTIVE BOWEL SOUNDS ALL QUADRANTS. IV SITE PATENT; NO S/SX OF INFECTION. PATIENT'S PAIN LEVEL AT 9/10. REQUESTING OXYCONTIN. BRONCHOPLEURAL FISTULA COVERED WITH ABD PAD. SAFETY PRECAUTIONS MAINTAINED. CALL LIGHT IN REACH. WILL CONT TO MONITOR.
[2018-02-08] MEDS: oxyCODONE HCL SR 20MG TAB.SR.12H PO SCH (08:28)
[2018-02-08] MEDS: LEVETIRACETAM (250 MG) 250 MG TABLET PO SCH ×2 (08:29→21:20)
[2018-02-08] MEDS ORDERED: ALBUTEROL FS 2.5 MG/3 ML VIAL.NEB NEB PRN (08:30)
[2018-02-08] MEDS: SERTRALINE HCL 25 MG TABLET PO SCH (08:32)
[2018-02-08] MEDS: LamoTRIgine 100 MG TABLET PO SCH ×2 (08:32→16:30)
[2018-02-08] MEDS ORDERED: LEVETIRACETAM (250 MG) 250 MG TABLET PO SCH (09:00)
[2018-02-08] MEDS ORDERED: ERGOCALCIFEROL (VITAMIN D 2) 50,000 UNIT CAPSULE PO SCH (09:00)
[2018-02-08] MEDS ORDERED: OXYCODONE HCL 20 MG PO SCH (09:00)
--- NOTE | 2018-02-08 09:38 | NUR ---
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 RECOMMEND SURGICAL CONSULT. ALL SKIN PROTECTION AND WOUND CARE RECOMMENDATIONS DISCUSSED WITH NURSING STAFF. DEFER TO MD FOR FISTULA. PT ON JONES ISOFLEX LOW AIRLOSS BED. PT IS INCONTINENT. WILL SEE PRN. CURRENT LUCERO SCORE IS 11. MD IN AGREEMENT WITH PLAN OF CARE.
--- NOTE | 2018-02-08 13:55 | NUR ---
CMA OR LPN NOTES RE: MRI BRAIN DR SNIDER CALLED REGARDING MRI BRAIN, CANCELLED ORDER.
--- NOTE | 2018-02-08 19:00 | NUR ---
SETTER MACHINE CLOSING NOTES ENDORSED PT TO PM NURSE FOR HANS. PT IS ASLEEP IN BED. NO SIGNS OF DISTRESS AT THIS TIME. BED IN LOCKED/LOWEST POSITION, CALL LIGHT IN REACH. ALL NEEDS ATTENDED TO.
--- NOTE | 2018-02-08 20:35 | NUR ---
2034 DR. SNIDER CALLED BACK AND NOTIFIED HIM THAT PATIENT IS TRYING TO GET OUT OF BED 3X WITH ORDER TO APPLE BILATERAL SOFT WRIST RESTRAINTS AND TO DISCONTINUE OXYCODONE HCL. ORDER NOTED AND CARRIED OUT.
--- NOTE | 2018-02-08 20:38 | NUR ---
RN NOTES CHARGE NURSE GOT A RESTRAINT ORDER FROM DR. SNIDER, ORDER NOTED AND CARRIED OUT
[2018-02-08] MEDS: ATORVASTATIN 10 MG TABLET PO SCH (21:21)
[2018-02-08] MEDS ORDERED: ATORVASTATIN 10 MG TABLET PO SCH (22:00)
[2018-02-09] VITALS: BP 110/89
[2018-02-09] MEDS: HYDROMORPHONE HCL 2 MG TABLET PO PRN ×3 (01:48→20:25)
--- NOTE | 2018-02-09 01:50 | NUR ---
RN NOTES COMPLAINED OF GENERALIZED PAIN- DILAUDID 4 MG PO GIVEN ORDERED, V/S STABLE
[2018-02-09 04:00] VITALS: BP 115/81
--- NOTE | 2018-02-09 06:30 | NUR ---
RN NOTES AWAKE, CALM AT THIS TIME, NOS OB, CALL LIGHT WITHIN REACH, SIDERAILSUPX2, PT. NEEDS ATTENDED
[2018-02-09 08:00] VITALS: BP 128/82
--- NOTE | 2018-02-09 08:00 | NUR ---
RN NOTES PATIENT IN BED RESTING NO SOB OR ACUTE DISTRESS NOTED. PATIENT ALERT, ORIENTED X2. BED IN LOW LOCKED POSITION. CALL LIGHT WITHIN REACH. WILL CONTINUE TO MONITOR.
[2018-02-09] MEDS: SERTRALINE HCL 25 MG TABLET PO SCH (08:13)
[2018-02-09] MEDS: LamoTRIgine 100 MG TABLET PO SCH ×2 (08:13→16:15)
[2018-02-09] MEDS: LEVETIRACETAM (250 MG) 250 MG TABLET PO SCH ×2 (08:13→20:22)
[2018-02-09 12:00] VITALS: BP 122/80
--- NOTE | 2018-02-09 12:45 | NUR ---
MS RN NOTES PATIENT TRANSFERRED TO MRI IN STABLE CONDITION.
--- NOTE | 2018-02-09 12:54 | NUR ---
STROKE BELT SANDER OPERATOR NOTES PATIENT RETURNED FROM MRI UNABLE TO PERFORM MRI OF BRAIN DUE TO PATIENT BEING UNABLE TO LAY STILL IN MRI MACHINE.
[2018-02-09 16:00] VITALS: BP 133/89
--- NOTE | 2018-02-09 18:04 | NUR ---
RN NOTES PATIENT IN BED RESTING NO SOB OR ACUTE DISTRESS NOTED. NO ACUTE CHANGES DURING AM SHIFT. ALL DUE MEDICATIONS ADMINISTERED. ALL NEEDS MET. WILL ENDORSE TO PM SHIFT HANS.
--- NOTE | 2018-02-09 19:40 | NUR ---
RN INITIAL TEL NOTES RECEIVED PT IN BED, ON ROOM AIR. NOT IN RESP DISTRESS. LUNG SOUNDS DIMINISHED. ACTIVE BOWEL SOUNDS ALL QUADRANTS. IV SITE PATENT; NO COMPLICATION. PATIENT'S REQUESTING OXYCONTIN, SITTER BY BEDSIDE. BRONCHOPLEURAL FISTULA COVERED WITH ABD PAD. SAFETY PRECAUTIONS MAINTAINED. CALL LIGHT IN REACH. WILL CONT TO MONITOR.
[2018-02-09 20:00] VITALS: BP 120/78
[2018-02-09 20:14] LABS: APPEARANCE,URINE CLOUDY (CLEAR); BILIRUBIN,URINE NEGATIVE (NEGATIVE); BLOOD, URINE 3+ Ery/uL (NEGATIVE); COLOR,URINE YELLOW (YELLOW); KETONES,URINE NEGATIVE (NEGATIVE); LEUKOCYTE ESTERASE ,URINE 2+ (NEGATIVE); NITRITE, URINE NEGATIVE (NEGATIVE); PH,URINE 8.5 (5.0-8.0); PROTEIN,URINE 2+ mg/dl (NEGATIVE); UGLUCOSE NEGATIVE (NEGATIVE); UROBILINOGEN,URINE 0.2 EU/dL (0.2)
[2018-02-09 20:36] LABS: BACTERIA,URINE Many /HPF (None Seen); SQUAMOUS EPITHELIAL CELL,UR Few /HPF (None Seen); TRIPLE PHOSPHATE CRYSTAL,UR Moderate /HPF (None Seen); WBC,URINE TOO NUMEROUS TO COUN /HPF (0-3)
[2018-02-09] MEDS: ATORVASTATIN 10 MG TABLET PO SCH (23:58)
[2018-02-10] VITALS (7 sets, daily range): BP systolic 122–140; BP diastolic 75–98
--- NOTE | 2018-02-10 06:19 | NUR ---
RN CLOSING NOTE PT ENDORSED IN BED, ASLEEP, WITH SITTER AT BED SIDE, NO CHANGES NOTED BILAT SOFT WRIST RESTRAIN DC, WILL ENDORSE TO AM SHIFT TO HANS, ALL SAFETY MEASURES MET.
--- NOTE | 2018-02-10 08:07 | NUR ---
RN NOTES RECEIVED PATIENT IN BED. ALERT AND ORIENTED X3, ABLE TO MAKE NEEDS KNOWN. ON ROOM AIR, NO SIGN OF DISTRESS NOTED AT THIS TIME, NO COMPLAINTS OF CHEST PAIN, NOR PAIN OF ANY KIND, ON TELEMONITOR: SINUS RHYTHM HR 75, SOFT RESTRAINT ON THE LEFT ARM, PATIENT ABLE TO FEEL AND MOVE FINGERS ON CHECK. LAC G 18 IVL SALINE LOCK, IN PLACE, INTACT AND PATENT ON FLUSHING. SAFETY MEASURES PUT AND KEEP IN PLACE, CALL LIGHT WITHIN REACH. WILL CONTINUE TO MONITOR AND ASSESS PATIENT.
[2018-02-10] MEDS: LamoTRIgine 100 MG TABLET PO SCH ×2 (09:23→16:56)
[2018-02-10] MEDS: SERTRALINE HCL 25 MG TABLET PO SCH (09:23)
[2018-02-10] MEDS: LEVETIRACETAM (250 MG) 250 MG TABLET PO SCH ×2 (09:23→21:27)
[2018-02-10] MEDS: HYDROMORPHONE HCL 2 MG TABLET PO PRN ×2 (13:40→19:36)
--- NOTE | 2018-02-10 13:41 | NUR ---
RN NOTES INFROMED DR GILL ON ABG RESULT, pH at 7.493, pCO2 at 34.0, pO2 at 66.2, HCO3 @25.5. no new order at this time
[2018-02-10 13:45] LABS: ABG BASE EXCESS 2.6 mmol/L; ABG OXYGEN SATURATION 93.6 % (92.0-98.5); ABG PH 7.493 (7.350-7.450); ABG PO2 66.2 mmHg (75.0-100.0); AaDO2 42.8 mmHg; COHb 0.3 % (0.5-1.5); MetHb 0.5 % (0.0-1.5); O2Hb 92.9 % (94.0-97.0); SITE, ABG Left Brachial; VENT MODE, BG R/A
--- NOTE | 2018-02-10 18:00 | NUR ---
RN NOTES INFORMED DR SNIDER THAT PATIENT HAD REMOVE IV LINE TWICE WITHIN THE SHIFT. TRIED INSERTING THREE TIMES ALREADY BUT TO NO AVAIL. DR SNIDER OK WITH NO IV LINE BUT TO KEEP PATIENT ON TELEMETRY ACUITY. ORDER NOTED AND CARRIED OUT
--- NOTE | 2018-02-10 19:34 | NUR ---
RN NOTES ENDORSED PATIENT FOR CONTINUITY OF CARE. NO ACUTE CHANGES WITHIN THE SHIFT. ALL NURSING NEEDS ATTENDED AND MET. KEEP SAFETY MEASURES IN PLACE AT ALL TIME. CALL LIGHT WITHIN REACH AT ALL TIMES
--- NOTE | 2018-02-10 19:46 | NUR ---
RN INITIAL TEL NOTES RECEIVED PT IN BED, ON ROOM AIR. NOT IN RESP DISTRESS. LUNG SOUNDS DIMINISHED. ACTIVE BOWEL SOUNDS ALL QUADRANTS. NO IV SITE MD AWARE; REQUESTING DILAUDID FOR BACK PAIN 8/10, RESTLESS, ON CLOSE MONITORING TO PREVENT FALL. BRONCHOPLEURAL FISTULA COVERED WITH ABD PAD. SAFETY PRECAUTIONS MAINTAINED. CALL LIGHT IN REACH. WILL CONT TO MONITOR.
[2018-02-10] MEDS: ATORVASTATIN 10 MG TABLET PO SCH (21:27)
[2018-02-11] VITALS: BP 123/75
--- NOTE | 2018-02-11 01:00 | NUR ---
ZONING TECHNICIAN NOTES: RECEIVED PT ON BED ASLEEP BUT AROUSES EASILY. NO ACUTE DISTRESS NOTED. DENIES PAIN AND DISCOMFORT AT THIS TIME. ON ROOM AIR, SATURATING WELL. ON TELE MONITOR SINUS RHYTHM HR 60BPM. KEPT CLEAN, DRY AND COMFORTABLE. SIDE RAILS UP X3. BED ALARM ON. BED LOCKED AND IN LOWEST POSITION. CALL LIGHT WITHIN REACH. WILL CONTINUE TO MONITOR PT.
[2018-02-11 04:00] VITALS: BP 115/71
--- NOTE | 2018-02-11 06:34 | NUR ---
MANAGER DISTRIBUTION CENTER NOTES: NO CHANGES NOTED THROUGHOUT THE SHIFT. NO SIGNS/SYMPTOMS OF AGITATION NOTED. NO APPARENT DISTRESS. ON TELE MONITOR SINUS RHYTHM HR 60BPM. KEPT CLEAN, DRY AND COMFORTABLE. SAFETY AND FALL PRECAUTIONS OBSERVED AND MAINTAINED. WILL ENDORSE TO DAY SHIFT FOR CONTINUITY OF CARE.
[2018-02-11 08:00] VITALS: BP 132/88
--- NOTE | 2018-02-11 08:00 | NUR ---
RN NOTES RECEIVED PATIENT IN BED. ALERT AND ORIENTED X3, ABLE TO MAKE NEEDS KNOWN. ON ROOM AIR, NO SIGN OF DISTRESS NOTED AT THIS TIME,SATURATION ON 99%, NO COMPLAINTS OF CHEST PAIN, NOR PAIN OF ANY KIND, ON TELEMONITOR: SINUS RHYTHM HR 75, SAFETY MEASURES PUT AND KEEP IN PLACE, CALL LIGHT WITHIN REACH. WILL CONTINUE TO MONITOR AND ASSESS PATIENT.
[2018-02-11] MEDS: LEVETIRACETAM (250 MG) 250 MG TABLET PO SCH ×2 (08:20→21:17)
[2018-02-11] MEDS: SERTRALINE HCL 25 MG TABLET PO SCH (08:20)
[2018-02-11] MEDS: LamoTRIgine 100 MG TABLET PO SCH ×2 (08:20→17:16)
[2018-02-11] MEDS: HYDROMORPHONE HCL 2 MG TABLET PO PRN ×2 (11:49→21:19)
[2018-02-11 12:00] VITALS: BP 109/74
[2018-02-11 16:00] VITALS: BP 121/73
--- NOTE | 2018-02-11 18:52 | NUR ---
RN NOTES: NO CHANGES NOTED THROUGHOUT THE SHIFT. NO APPARENT DISTRESS. KEPT CLEAN, DRY AND COMFORTABLE. SAFETY AND FALL PRECAUTIONS OBSERVED AND MAINTAINED. CALL LIGHT WITHIN REACH. WILL ENDORSE TO MED SURG NURSE FOR CONTINUITY OF CARE.
[2018-02-11 20:00] VITALS: BP 117/72
--- NOTE | 2018-02-11 20:30 | NUR ---
RN MS NOTES RECEIVED PATIENT IN BED AWAKE. ALERT AND ORIENTED X2, VERBALLY RESPONSIVE, ABLE TO MAKE NEEDS KNOWN. BREATHING EVEN AND UNLABORED. NO SOB NOTED -TOLERATING ROM AIR. CURRENTLY WITH PAIN ON LEFT ABDOMEN, RIBS, AND BACK. WILL GIVE NEXT SCHEDULED PAIN MEDICATION. NO IV ACCESS - MD AWARE. SKIN DRY AND WARM TO TOUCH. AFEBRILE. ALL OTHER NEEDS ATTENDED TO. SAFETY MEASURES IN PLACE. CALL LIGHT WITHIN REACH. WILL CONTINUE TO MONITOR.
[2018-02-11] MEDS: ATORVASTATIN 10 MG TABLET PO SCH (21:16)
[2018-02-12 04:28] VITALS: BP 116/74
--- NOTE | 2018-02-12 06:45 | NUR ---
RN MS CLOSING NOTES PATIENT IN BED AWAKE. ALERT AND ORIENTED X1-2. NO ACUTE CHANGES THROUGHOUT SHIFT. BREATHING EVEN AND UNLABORED. NO SOB NOTED -TOLERATING ROM AIR. CURRENTLY WITH NO COMPLAINTS OF PAIN OR DISCOMFORT. NO IV ACCESS - MD AWARE. SKIN DRY AND WARM TO TOUCH. AFEBRILE. ALL OTHER NEEDS ATTENDED TO. SAFETY MEASURES IN PLACE. CALL LIGHT WITHIN REACH. WILL ENDORSE TO ONCOMING NURSE FOR CONTINUITY OF CARE.
--- NOTE | 2018-02-12 07:17 | NUR ---
MS RN OPENING NOTE RECEIVED PATIENT IN BED. ALERT ORIENTED X1-2, FORGETFUL AND CONFUSED. ON ROOM AIR TOLERATING WELL. IN NO APPARENT DISTRESS OR DISCOMFORT AT THIS TIME. RESPIRATIONS EVEN AND UNLABORED. DENIES PAIN AND SOB. PATIENT IS ABLE TO COMMUNICATE NEEDS. ON BEDREST. NO IV CANAL PRESENT PER DR. SNIDER. PATIENT KEPT CLEAN AND COMFORTABLE. ALL NEEDS ATTENDED. SAFETY MEASURES IN PLACE, BED IN LOW LOCKED POSITION, ALARM ON, SIDE RAILS UP X3, SITTER AT BEDSIDE, CALL LIGHT WITHIN EASY REACH WILL CONTINUE TO MONITOR.
[2018-02-12 08:00] VITALS: BP 132/82
[2018-02-12] MEDS: SERTRALINE HCL 25 MG TABLET PO SCH (09:15)
[2018-02-12] MEDS: LamoTRIgine 100 MG TABLET PO SCH (09:15)
[2018-02-12] MEDS: LEVETIRACETAM (250 MG) 250 MG TABLET PO SCH (09:16)
[2018-02-12] MEDS: HYDROMORPHONE HCL 2 MG TABLET PO PRN (09:22)
[2018-02-12] MEDS ORDERED: CEFAZOLIN 1 GM in IV D5W 50 ML IV SCH (11:00)
[2018-02-12 14:28] LABS: BASOPHILS % (AUTO) 0.4 % (0.0-2.0); EOSINOPHILS % (AUTO) 0.9 % (0.0-6.0); HEMATOCRIT 40 % (39-51); LYMPHOCYTES % (AUTO) 23.4 % (20.0-44.0); MEAN CORPUSCULAR HGB CONC 33 g/dl (31.0-36.0); MEAN CORPUSCULAR VOLUME 95 fL (80-96); MONOCYTES # (AUTO) 1.2 /CMM (0.1-1.30); MONOCYTES % (AUTO) 14.8 % (2.0-12.0); NEUTROPHILS # (AUTO) 5.1 /CMM (1.8-8.9); NEUTROPHILS % (AUTO) 60.5 % (43.0-81.0); PLATELET COUNT (AUTO) 219 /CMM (150-450); RED BLOOD CELL COUNT(AUTO) 4.17 MIL/uL (4.5-6.0); WHITE BLOOD COUNT (AUTO) 8.4 K/uL (4.3-11.0)
[2018-02-12 14:38] LABS: CALCIUM, SERUM 8.4 mg/dL (8.5-10.1); POTASSIUM 4.3 mmol/L (3.5-5.1)
--- NOTE | 2018-02-12 16:00 | NUR ---
MS OPTIMIZATION CONSULTANT NOTE RECEIVED DISCHARGE ORDER FROM DR. SNIDER TO DISCHARGE PATIENT TO [facility] WITH NEWLY ORDERED IV IBX. PATIENT IS ALERT, ORIENTED X2, FORGETFUL AND EPISODES OF CONFUSION. PATIENT IS STABLE, VITAL SIGNS STABLE. RESPIRATIONS EVEN AND UNLABORED. ON ROOM AIR. EXITCARE DISCUSSED WITH THE PATIENT, VERBALIZES UNDERSTANDING BUT DUE TO CONFUSION AND FORGETFULNESS NEED CONTINUOUS REORIENTATION AND REINFORCEMENT OF TEACHING. BELONGINGS CHECKED PLACED IN BAG. MEDICATION RECONCILIATION DONE BY DR SNIDER. WITNESSED AND SIGNED DISCHARGE PAPERWORK BY TWO RNS, AND PLACED COPIES IN THE CHART. PATIENT'S SKIN CARE PERFORMED. PICTURES TAKEN WITHIN 24HOURS, PLACED IN CHART. IV SITE ESTABLISHED ON RIGHT HAND 22G, PATENT AND INTACT. PER DR. SNIDER'S VERBAL ORDER PATIENT IS TO BE DC-ED WITH AVAILABLE IV SITE. ID BAND REMOVED. REPORT GIVEN TO TORY LAY AT [facility]. AMBULANCE PICKED UP THE PATIENT AT 1600.
[2018-02-13] MEDS ORDERED: ASPIRIN EC 81 MG TABLET.DR PO SCH (09:00)
[2018-02-14] MEDS ORDERED: ALENDRONATE 70 MG TABLET PO SCH (07:30)
== END 2018-02-12 16:00 | DRG 689 ==
LOC: ER 18:15 → TELE1 21:02 → MEDSG1 02-11 15:04
PROVIDERS: ADMIT Internal Medicine; ATTEND Internal Medicine
DX: N39.0 Urinary tract infection, site not specified (principal); G92 Toxic encephalopathy; J86.0 Pyothorax with fistula; G96.0 Cerebrospinal fluid leak; R41.82 Altered mental status, unspecified; G40.909 Epilepsy, unspecified, not intractable, without status epilepticus; J44.9 Chronic obstructive pulmonary disease, unspecified; I25.10 Atherosclerotic heart disease of native coronary artery without angina pectoris; F03.90 Unspecified dementia, unspecified severity, without behavioral disturbance, psychotic disturbance, mood disturbance, and anxiety; E88.09 Other disorders of plasma-protein metabolism, not elsewhere classified; M81.0 Age-related osteoporosis without current pathological fracture; F17.210 Nicotine dependence, cigarettes, uncomplicated; Z85.841 Personal history of malignant neoplasm of brain; G40.409 Other generalized epilepsy and epileptic syndromes, not intractable, without status epilepticus; R53.1 Weakness; Z90.2 Acquired absence of lung [part of]; D18.1 Lymphangioma, any site; Z79.83 Long term (current) use of bisphosphonates
CPT/HCPCS: 36415; 36600; 70450-TC; 71045-TC; 80048-TC; 80076-TC; 81000-TC; 82803-TC; 83605-TC; 84484-TC; 85025-TC; 85730-TC; 87040-TC; 87081-TC; 87086-TC; 87186-TC; 95819-TC; 97116-TC; 97530-TC; A4606; A6253; A6402; G0378; J0690; J2270; J2405; J7030; J7060; Z7610

== ENCOUNTER 2018-12-14 16:45 | Emergency (ER) | payer MEDICARE, OTHER ==
[~2018-12-14] VITALS: Ht 177.8 cm; Wt 70.8 kg
[~2018-12-14 16:45] MED LIST changes: -ALBU8.5H8 IH; -ALEN70TA45 PO; +ALEN70TA6 PO; -HYDR4TAB57 PO; -OXYC20TA73 PO
[2018-12-14] MEDS ORDERED: DULO30CA2 PO (17:29)
[2018-12-14] MEDS ORDERED: UMEC62.5 IH (17:29)
[2018-12-14] MEDS ORDERED: ACET-73 PO (17:29)
[2018-12-14] MEDS ORDERED: TAMS-12 PO (17:29)
[2018-12-14] MEDS ORDERED: MORP15TA60 PO (17:29)
[2018-12-14] MEDS ORDERED: LEVE500T20 PO (17:29)
[2018-12-14] MEDS ORDERED: AMLO10TA7 PO (17:29)
[2018-12-14] MEDS ORDERED: FINA5TAB3 PO (17:29)
[2018-12-14] MEDS ORDERED: ATOR20TA PO (17:29)
[2018-12-14] MEDS ORDERED: CRAN450C PO (17:29)
[2018-12-14] MEDS ORDERED: ALBU8.5H8 IH (17:29)
[2018-12-14] MEDS ORDERED: SACC250C PO (17:29)
[2018-12-14] MEDS ORDERED: SENN-168 PO (17:29)
[2018-12-14] MEDS ORDERED: PANT40TA4 PO (17:29)
[2018-12-14] MEDS ORDERED: GABA-534 PO (17:29)
[2018-12-14] MEDS ORDERED: DOCU-141 PO (17:29)
[2018-12-14] MEDS ORDERED: SERT25TA PO (17:29)
--- NOTE | 2018-12-14 17:32 | NUR ---
SENT BY PCP FOR DYSURIA, POSSIBLE SEPSIS. PT AAOX4, VSS. RR EVEN & UNLABORED. DENIES CP, SOB, DIZZINESS, N/V/D AT THIS TIME. AWAITING EVAL BY ERMD/PA & WILL CONT TO MONITOR.
--- NOTE | 2018-12-14 19:00 | NUR ---
URINE COLLECTED & SENT TO LAB.
[2018-12-14 19:08] LABS: APPEARANCE,URINE Turbid (CLEAR); BILIRUBIN,URINE Negative (NEGATIVE); BLOOD, URINE Moderate Ery/uL (NEGATIVE); COLOR,URINE Yellow (YELLOW); KETONES,URINE Negative (NEGATIVE); LEUKOCYTE ESTERASE ,URINE Large (NEGATIVE); NITRITE, URINE Negative (NEGATIVE); PH,URINE 6.5 (5.0-8.0); PROTEIN,URINE 100 mg/dl (NEGATIVE); UGLUCOSE Negative (NEGATIVE); UROBILINOGEN,URINE 0.2 EU/dL (0.2)
[2018-12-14 19:36] LABS: BACTERIA,URINE Few /HPF (None Seen); SQUAMOUS EPITHELIAL CELL,UR Few /HPF (None Seen); WBC,URINE TOO NUMEROUS TO COUN /HPF (0-3)
[2018-12-14 19:38] LABS: BASOPHILS # (AUTO) 0.1 /CMM (0.0-0.2); BASOPHILS % (AUTO) 1.2 % (0.0-2.0); EOSINOPHILS % (AUTO) 6.7 % (0.0-6.0); HEMATOCRIT 44 % (39-51); HEMOGLOBIN 14.8 g/dL (13.5-17.5); LYMPHOCYTES # (AUTO) 2.5 /CMM (0.8-4.8); LYMPHOCYTES % (AUTO) 27.2 % (20.0-44.0); MEAN CORPUSCULAR HGB CONC 34 g/dl (31.0-36.0); MEAN CORPUSCULAR VOLUME 95 fL (80-96); MONOCYTES # (AUTO) 0.8 /CMM (0.1-1.30); MONOCYTES % (AUTO) 8.5 % (2.0-12.0); NEUTROPHILS # (AUTO) 5.2 /CMM (1.8-8.9); NEUTROPHILS % (AUTO) 56.4 % (43.0-81.0); PLATELET COUNT (AUTO) 217 /CMM (150-450); RED BLOOD CELL COUNT(AUTO) 4.65 MIL/uL (4.5-6.0); WHITE BLOOD COUNT (AUTO) 9.2 K/uL (4.3-11.0)
[2018-12-14 19:47] LABS: CALCIUM, SERUM 9.2 mg/dL (8.5-10.1); CARBON DIOXIDE 29 mmol/L (21-32); CHLORIDE 105 mmol/L (98-107); CREATININE 1.2 mg/dL (0.6-1.3); GLUCOSE 134 mg/dL (74-106); POTASSIUM 4.2 mmol/L (3.5-5.1); SODIUM SERUM 142 mmol/L (136-145); UREA NITROGEN, BLOOD 14 mg/dL (7-18)
[2018-12-14 19:53] LABS: ALANINE AMINOTRANSFERASE 67 U/L (12-78); ALBUMIN 3.8 g/dL (3.4-5.0); ALKALINE PHOSPHATASE 136 U/L (46-116); ASPARTATE AMINOTRANSFERASE 42 U/L (15-37); BILIRUBIN,DIRECT 0.2 mg/dL (0.0-0.2); BILIRUBIN,TOTAL 0.4 mg/dL (0.2-1.0); TOTAL PROTEIN, SERUM 7.4 g/dL (6.4-8.2)
--- NOTE | 2018-12-14 20:15 | NUR ---
PAGED INDUSTRIAL WORKERS FOR DR SNIDER, LEFT VOICEMAIL
[2018-12-14] MEDS ORDERED: CEFTRIAXONE 1GM BAG (ER ONLY) 1 GM/50 ML PIGGYBACK IV ONE (20:30)
[2018-12-14] MEDS ORDERED: IV NS 0.9% 1,000 ML BAG IV ONE (20:30)
--- NOTE | 2018-12-14 20:52 | NUR ---
PAGED DR SNIDER
--- NOTE | 2018-12-14 21:10 | NUR ---
AMBULN ETA [id number], [id number]
[2018-12-14] MEDS ORDERED: CEFTRIAXONE 1GM BAG (ER ONLY) 50 ML IV ONE (22:02)
[2018-12-14] MEDS ORDERED: LORAZEPAM INJ 2 MG/ML VIAL ONE (22:02)
[2018-12-14] MEDS ORDERED: LORAZEPAM INJ 2 MG/ML VIAL IV ONE (22:30)
--- NOTE | 2018-12-14 22:47 | NUR ---
[facility] AT BEDSIDE FOR TRANSPORT TO [facility]
[2018-12-14 22:48] VITALS: BP 151/72
== END 2018-12-14 22:49 | disposition home or self-care (01) ==
LOC: ER 16:48
DX: N39.0 Urinary tract infection, site not specified (principal); Z98.890 Other specified postprocedural states; Z79.899 Other long term (current) drug therapy
CPT/HCPCS: 36415; 80048; 80076; 81001; 83605 ×2; 84145; 85025; 85730; 87040 ×2; 87077; 87086; 87186; 96365; 96375; 99283; J0696; J2060; J7030; 81000-TC

== ENCOUNTER 2019-01-30 14:53 | Inpatient (IN) | payer MEDICARE, OTHER ==
[~2019-01-30] VITALS: Ht 177.8 cm; Wt 71.7 kg
[~2019-01-30 14:53] MED LIST changes: +ACET-73 PO; +ALBU8.5H8 IH; -ALEN70TA6 PO; +AMLO10TA7 PO; -ATOR10TA PO; +ATOR20TA PO; +CRAN450C PO; +DOCU-141 PO; +DULO30CA2 PO; -ERGO500014 PO; +FINA5TAB3 PO; +GABA-534 PO; -LEVE250T4 PO; +LEVE500T20 PO; +MORP15TA60 PO; +PANT40TA4 PO; +SACC250C PO; +SENN-168 PO; +SERT25TA PO; -SERT25TA5 PO; +TAMS-12 PO; +UMEC62.5 IH
--- NOTE | 2019-01-30 15:00 | NUR ---
MARS TORIBIO FROM [facility],C/O LOW ABDOMINAL PAIN FOR "MORE THAN A MONTH" SEEN HERE A MONTH AGO FOR UTI. PATIENT A/OX3, BREATHING EVEN AND UNLABORED, NOS OB NOTED. NEEDS ATTENDED. CHANGED INTO GOWN, ATTACHED TO THE PROFESSIONAL DEVELOPMENT INSTRUCTOR.
[2019-01-30] MEDS ORDERED: TEMA15CA PO (15:22)
[2019-01-30] MEDS ORDERED: MORP15TA PO (15:22)
[2019-01-30] MEDS ORDERED: ACET-868 PO (15:22)
[2019-01-30] MEDS ORDERED: ALBU18HF2 IH (15:22)
--- NOTE | 2019-01-30 15:25 | NUR ---
IV LINE ESTABLISHED, BLOOD DRAWNED AND SENT TO LAB.
[2019-01-30 15:30] LABS: BASOPHILS # (AUTO) 0.1 /CMM (0.0-0.2); BASOPHILS % (AUTO) 1.1 % (0.0-2.0); EOSINOPHILS % (AUTO) 2.1 % (0.0-6.0); HEMATOCRIT 45 % (39-51); HEMOGLOBIN 15.4 g/dL (13.5-17.5); LYMPHOCYTES # (AUTO) 1.6 /CMM (0.8-4.8); MEAN CORPUSCULAR HGB CONC 34 g/dl (31.0-36.0); MEAN CORPUSCULAR VOLUME 95 fL (80-96); MONOCYTES # (AUTO) 1.1 /CMM (0.1-1.30); MONOCYTES % (AUTO) 10.8 % (2.0-12.0); NEUTROPHILS # (AUTO) 6.8 /CMM (1.8-8.9); PLATELET COUNT (AUTO) 163 /CMM (150-450); RED BLOOD CELL COUNT(AUTO) 4.74 MIL/uL (4.5-6.0); WHITE BLOOD COUNT (AUTO) 9.7 K/uL (4.3-11.0)
[2019-01-30 15:37] LABS: CREATININE 1.2 mg/dL (0.6-1.3); POTASSIUM 3.7 mmol/L (3.5-5.1)
[2019-01-30 15:42] LABS: ALBUMIN 4.1 g/dL (3.4-5.0); BILIRUBIN,DIRECT 0.3 mg/dL (0.0-0.2); BILIRUBIN,TOTAL 0.8 mg/dL (0.2-1.0); TOTAL PROTEIN, SERUM 7.5 g/dL (6.4-8.2)
[2019-01-30 16:11] LABS: APPEARANCE,URINE Cloudy (CLEAR); BILIRUBIN,URINE SMALL (NEGATIVE); BLOOD, URINE Moderate Ery/uL (NEGATIVE); COLOR,URINE Yellow (YELLOW); KETONES,URINE Negative (NEGATIVE); LEUKOCYTE ESTERASE ,URINE Large (NEGATIVE); NITRITE, URINE Negative (NEGATIVE); PH,URINE 8.5 (5.0-8.0); PROTEIN,URINE 100 mg/dl (NEGATIVE); UGLUCOSE Negative (NEGATIVE)
[2019-01-30] MEDS ORDERED: MORPHINE SULFATE INJ 2 MG/ML DISP.SYRIN ONE (16:15)
[2019-01-30] MEDS ORDERED: ONDANSETRON HCL/PF 4 MG/2 ML VIAL ONE (16:15)
[2019-01-30 16:17] LABS: BACTERIA,URINE Many /HPF (None Seen); MUCUS,URINE Many /LPF (None Seen); RBC,URINE 51-80 /HPF (0-2); SQUAMOUS EPITHELIAL CELL,UR None Seen /HPF (None Seen); WBC,URINE TOO NUMEROUS TO COUN /HPF (0-3)
[2019-01-30] MEDS ORDERED: IOHEXOL-300 100 ML VIAL IV ONE (16:17)
[2019-01-30] MEDS ORDERED: IV NS 0.9% 250 ML IV ONE (16:17)
[2019-01-30] MEDS ORDERED: CT SWABBABLE VALVE TRANS SET 1 EA INFUS.SET MC ONE (16:17)
[2019-01-30] MEDS ORDERED: MORPHINE SULFATE INJ 2 MG/ML DISP.SYRIN IV ONE (16:30)
[2019-01-30] MEDS ORDERED: ONDANSETRON HCL/PF - ER 4 MG/2 ML VIAL IV ONE (16:30)
[2019-01-30] MEDS ORDERED: PIPERACILLIN /TAZOBACTAM 3.375 G in IV D5W 50 ML IV ONE (16:30)
--- NOTE | 2019-01-30 17:43 | NUR ---
REPORT GIVEN TO ELIAN LAY.
--- NOTE | 2019-01-30 18:00 | NUR ---
TAXI DRIVER NOTE PATIENT CAME IN VIA GURNEY FROM ER. RECEIVED REPORT FROM ROSANNE CEDEÑO. PATIENT CAME IN WITH A WALKER, BUT STATES HE CANNOT WALK. WOUND CHECK DONE, HAS A SURGICAL WOUND FROM 4 YEARS AGO ON HIS POSTERIOR LEFT SIDE. PER PATIENT HE IS CONTINENT, BUT SOAKED IN URINE WHEN HE CAME IN. CHANGED TO HOSPITAL GOWN. NO OTHER WOUNDS NOTED. HAS A RIGHT AC #18 SALINE LOCKED. PATIENT AGITATED STATES HE WANTS TO SLEEP. BED LOCKED AND IN LOWEST POSITION. CALL LIGHT WITHIN REACH. WILL CALL DR SNIDER FOR ADMISSION ORDERS.
--- NOTE | 2019-01-30 18:00 | NUR ---
PATIENT TRANSFERRED TO ROOM 111-2 VIA ACLS PROTOCOL. NO DISTRESS NOTED.
--- NOTE | 2019-01-30 18:30 | NUR ---
RN NOTE PAGED DR SNIDER FOR ADMISSION ORDERS. PER DR SNIDER, CALL HIS OFFICE. CALLED HIS OFFICE, TALKED TO HIS PA, NEW ORDERS RECEIVED. ROCEPHIN 1G Q DAILY. NS AT 75 ML/HR. CBC, CMP, HGBA1C, LIPID PANEL, TSH IN AM. 2D ECHO. REGULAR DIET. ORDERS CARRIED OUT.
[2019-01-30] MEDS ORDERED: IV NS 0.9% 1,000 ML BAG IV PRN (19:00)
--- NOTE | 2019-01-30 19:15 | NUR ---
MS RN OPENING NOTES RECEIVED PATIENT SLEEPING IN BED, EASILY AROUSABLE. BREATHING EVEN AND UNLABORED. NOT IN ANY DISTRESS, ON ROOM AIR. NO COMPLAINTS AT THIS TIME. PERIPHERAL IV INFUSING AT 75ML/HR. SAFETY MEASURES IN PLACE, CALL LIGHT WITHIN REACH, BED IN LOW, LOCKED POSITION. WILL CONTINUE TO MONITOR ACCORDINGLY
[2019-01-30] MEDS: IV NS 0.9% 1,000 ML IV PRN (19:18)
--- NOTE | 2019-01-30 19:30 | NUR ---
RN CLOSING NOTE PATIENT ASLEEP BUT EASILY AROUSABLE TO NAME. ON ROOM AIR, NO COMPLAINS OF ANY PAIN NOR SOB AT THIS TIME. MED RECON STILL PENDING. DIET ORDERED, DINNER SHOULD BE COMING SOON FROM KITCHEN. BED LOCKED REPORT GIVEN TO NOC SHIFT RN FOR HANS
[2019-01-30 20:00] VITALS: BP 135/76
[2019-01-30] MEDS: CEFTRIAXONE 1 G in IV D5W 50 ML IV SCH (20:25)
--- NOTE | 2019-01-30 20:30 | NUR ---
RN NOTES PATIENT C/O SUPRAPUBIC PAIN. PAGED DR. SNIDER'S OFFICE FOR ORDERS. NO ANSWER. LEFT A MESSAGE. WILL FOLLOW UP
--- NOTE | 2019-01-30 20:50 | NUR ---
RN NOTES NEW ORDERS RECEIVED FROM DR. SNIDER'S PA, KISHORE ANDERSON TIP PUNCHER: MORPHINE 4MG IV O4H FOR SEVERE PAIN TEMAZEPAM 15MG CAP HS FOR SLEEP ADMIT TO ORDERS: MS FOR ABDOMINAL PAIN ORDERS NOTED AND CARRIED OUT
[2019-01-30] MEDS: MORPHINE SULFATE INJ 4 MG/ML DISP.SYRIN IV PRN (21:08)
--- NOTE | 2019-01-30 21:08 | NUR ---
RN NOTES PATIENT C/O BURNING PAIN IN LOWER ABDOMEN, 01/31. V/S WNL. MORPHINE 4MG IV GIVEN ORDERED. WILL CONTINUE TO MONITOR
[2019-01-31 04:00] VITALS: BP 110/66
[2019-01-31] MEDS: MORPHINE SULFATE INJ 4 MG/ML DISP.SYRIN IV PRN ×4 (05:33→20:05)
--- NOTE | 2019-01-31 05:33 | NUR ---
RN NOTES PATIENT C/O BURNING PAIN IN LOWER ABDOMEN, 01/31. V/S WNL. MORPHINE 4MG IV GIVEN ORDERED. WILL CONTINUE TO MONITOR
--- NOTE | 2019-01-31 06:59 | NUR ---
MS RN CLOSING NOTE PATIENT ASLEEP BUT EASILY AROUSABLE TO NAME. ON ROOM AIR. NO COMPLAINS OF ANY PAIN OR DISCOMFORT AT THIS TIME. PERIPHERAL IV INFUSING AT 75ML/HR. ALL NEEDS ATTENDED. KEPT COMFORTABLE. SAFETY MEASURES IN PLACE; CALL LIGHT WITHIN REACH, BED IN LOW, LOCKED POSITION. WILL ENDORSE HANS TO ONCOMING RN
[2019-01-31 07:40] LABS: BASOPHILS # (AUTO) 0.1 /CMM (0.0-0.2); BASOPHILS % (AUTO) 0.6 % (0.0-2.0); HEMATOCRIT 41 % (39-51); HEMOGLOBIN 13.6 g/dL (13.5-17.5); LYMPHOCYTES # (AUTO) 1.2 /CMM (0.8-4.8); LYMPHOCYTES % (AUTO) 14.3 % (20.0-44.0); MEAN CORPUSCULAR HGB CONC 34 g/dl (31.0-36.0); MEAN CORPUSCULAR VOLUME 94 fL (80-96); NEUTROPHILS # (AUTO) 5.9 /CMM (1.8-8.9); NEUTROPHILS % (AUTO) 72.1 % (43.0-81.0); PLATELET COUNT (AUTO) 161 /CMM (150-450); RED BLOOD CELL COUNT(AUTO) 4.31 MIL/uL (4.5-6.0); WHITE BLOOD COUNT (AUTO) 8.3 K/uL (4.3-11.0)
--- NOTE | 2019-01-31 07:54 | NUR ---
MS RN OPENING NOTES Received Patient resting and asleep in bed. VS stable with no acute distress. Breathing even and unlabored on room air with no respiratory distress. No signs and symptoms of pain at this time. 18g PIV on RAC clean, dry, intact and flushing well with NS running at 75ml/hr. Safety precautions in place. Bed locked and set to lowest position with side rails x 2 up. All needs rendered at this time. Call light within reach. Will continue to monitor.
[2019-01-31 07:58] LABS: ALBUMIN 3.2 g/dL (3.4-5.0); BILIRUBIN,TOTAL 0.7 mg/dL (0.2-1.0); POTASSIUM 3.5 mmol/L (3.5-5.1); TOTAL PROTEIN, SERUM 6.3 g/dL (6.4-8.2)
[2019-01-31 08:00] VITALS: BP 128/69
[2019-01-31 08:05] LABS: THYROID STIMULATING HORMONE 0.168 uIU/mL (0.358-3.74)
[2019-01-31] MEDS ORDERED: CEFTRIAXONE 1 G in IV D5W 50 ML IV SCH (09:00)
--- NOTE | 2019-01-31 10:10 | NUR ---
MS RN NOTES Per Patient, Patient had seizure. Unwitnessed seizure noted. Noted left sided facial weakness and flaccid left arm. Patient A/O x 3 to person, place and time. VS stable. BS-130. Denies pain. Notified Dr. Arora. Per MD, resume all home medications. Stat CT scan Head wo Contrast noted, ordered and carried out. Patient in stable condition. Will continue to monitor.
[2019-01-31] MEDS ORDERED: ACETAMINOPHEN 325 MG TABLET PO PRN (11:00)
--- NOTE | 2019-01-31 11:56 | NUR ---
MS RN NOTES Patient taken to radiology for CT scan Head wo Contrast. Patient in stable condition. Will continue to monitor.
--- NOTE | 2019-01-31 12:06 | NUR ---
MS RN NOTES Patient returned from Radiology at this time. Patient in stable condition. Will continue to monitor.
[2019-01-31] MEDS: GABAPENTIN 300 MG CAPSULE PO SCH ×2 (12:22→16:06)
[2019-01-31] MEDS ORDERED: ALBUTEROL FS 2.5 MG/0.5 ML VIAL.NEB NEB PRN (13:30)
--- NOTE | 2019-01-31 15:17 | NUR ---
Alert and awake, resides at [facility] [phone] located at [address] [place] [address],[place] [id number]. He ambulates with a walker at baseline, min assist with adl's. His pcp is Dr. Dean Carroll. Patient plan to return to [facility] once discharge. Addendum: 01/31/19 at 1518 by CAMILO GOMEZ RN Amended: Links added.
[2019-01-31] MEDS: IV NS 0.9% 1,000 ML IV PRN (15:44)
[2019-01-31 16:00] VITALS: BP 110/74
[2019-01-31] MEDS: TAMSULOSIN 0.4 MG CAP.SR.24H PO SCH (16:06)
[2019-01-31] MEDS: DOCUSATE SODIUM 100 MG CAPSULE PO SCH (16:06)
--- NOTE | 2019-01-31 19:15 | NUR ---
MS1 RN NOTES RECEIVED RESTING COMFORTABLY ON BED,A/O X3,BREATHING REGULAR,NOT IN ANY FORM OF DISTRESS.IVF OF NS AT 75ML/HR RATE INFUSING VIA IV PUMP ON THE RIGHT AC,SITE PATENT.C/O ABDOMINAL PAIN,TOLERABLE AT THE MOMENT AND ITS NOT DUE YET.AMBULATE WIT WALKER,WITH STANDBY ASSIST DUE TO SEIZURE HISTORY.CALL LIGHT IN REACH,NEEDS ANTICIPATED.
--- NOTE | 2019-01-31 19:29 | NUR ---
MS RN CLOSING NOTES Patient resting in bed. VS stable with no acute distress. Breathing even and unlabored on room air with no respiratory distress. Patient stated moderate pain on LOWER ABDOMEN. Offered and refused Morphine IR Tab. Per Patient, wants to wait for Morphine 4mg IVP. Will endorse to oncoming shift. 18g PIV on RAC clean, dry, intact and flushing well with NS running at 75ml/hr. Safety precautions in place. Bed locked and set to lowest position with side rails x 2 up. All needs rendered at this time. Call light within reach. Will endorse plan of care to oncoming shift.
[2019-01-31 20:00] VITALS: BP 134/75
[2019-01-31] MEDS: CEFTRIAXONE 1 G in IV D5W 50 ML IV SCH (20:05)
--- NOTE | 2019-01-31 20:05 | NUR ---
MS1 RN NOTES PAIN MANAGEMENT C/O ABDOMINAL/BACK PAIN 8/10 ON PAIN SCALE.MORPHINE 4MG IV ADMINISTERED.VITAL SIGNS WITH IN NORMAL LIMITS
[2019-01-31] MEDS: LEVETIRACETAM (250 MG) 250 MG TABLET PO SCH (21:06)
[2019-01-31] MEDS: LamoTRIgine 100 MG TABLET PO SCH (21:07)
[2019-01-31] MEDS: SENNOSIDES 8.6 MG TABLET PO SCH (21:11)
--- NOTE | 2019-01-31 21:15 | NUR ---
MS1 RN NOTES PATIENT REFUSED [place] THIS TIME AND ITS ALREADY OPENED,WASTED.
[2019-01-31] MEDS ORDERED: TEMAZEPAM 15 MG CAPSULE PO PRN (22:00)
[2019-01-31] MEDS: MORPHINE SULFATE IR 15 MG TABLET PO PRN (22:28)
--- NOTE | 2019-01-31 22:28 | NUR ---
MS1 RN NOTES STILL IN PAIN 8/10 ON PAIN SCALE ON HIS BACK AND ABDOMEN,MORPHINE IR 15MG PO GIVEN.WILL MONITOR FOR RELIEF.
--- NOTE | 2019-02-01 | NUR ---
MS1 RN NOTES PATIENT PULLED RIGHT AC SALINE LOCK.NEW IV ACCESS PLACE ON RIGHT WRIST #22,FLUSHED WITH NS,SAME IVF INFUSING.
[2019-02-01 04:00] VITALS: BP 126/72
--- NOTE | 2019-02-01 06:18 | NUR ---
MS1 RN CLOSING NOTES FAIRLY RESTED WITH PAIN MANAGEMENT AND SLEEPING PILL.ALL DUE MEDS ADMINISTERED.NO SEIZURE ACTIVITY NOTED.CALL LIGHT IN REACH,NEEDS ATTENDED.WILL ENDORSE TO DAY NURSE FOR HANS.
[2019-02-01] MEDS: MORPHINE SULFATE INJ 4 MG/ML DISP.SYRIN IV PRN (07:58)
[2019-02-01 08:00] VITALS: BP 139/81
[2019-02-01] MEDS: FLUTICASONE/VILANTEROL 1 EACH BLST.W.DEV IH SCH (08:23)
[2019-02-01] MEDS: DOCUSATE SODIUM 100 MG CAPSULE PO SCH ×2 (08:24→17:30)
[2019-02-01] MEDS: DULOXETINE HCL 30 MG CAPSULE.DR PO SCH (08:24)
[2019-02-01] MEDS: SERTRALINE HCL 25 MG TABLET PO SCH (08:24)
[2019-02-01] MEDS: PANTOPRAZOLE 40 MG TABLET.DR PO SCH (08:25)
[2019-02-01] MEDS: LEVETIRACETAM (250 MG) 250 MG TABLET PO SCH ×2 (08:25→20:18)
[2019-02-01] MEDS: TAMSULOSIN 0.4 MG CAP.SR.24H PO SCH ×2 (08:25→17:30)
[2019-02-01] MEDS: LamoTRIgine 100 MG TABLET PO SCH ×2 (08:25→20:18)
[2019-02-01] MEDS: GABAPENTIN 300 MG CAPSULE PO SCH ×3 (08:25→17:30)
[2019-02-01] MEDS: FINASTERIDE (5 MG) 5 MG TABLET PO SCH (08:25)
[2019-02-01] MEDS: AMLODIPINE BESYLATE 10 MG TABLET PO SCH (08:26)
[2019-02-01] MEDS ORDERED: PHENAZOPYRIDINE HCL 200 MG TABLET PO PRN (09:00)
[2019-02-01] MEDS ORDERED: Medication Not On Formulary EA (Cranberry Fruit Concentrate (Cranberry) 450 MG) PO SCH (09:00)
[2019-02-01] MEDS ORDERED: HYDROMORPHONE INJ 0.5 MG/0.5 ML SYRINGE IV PRN (09:00)
[2019-02-01] MEDS: HYDROMORPHONE INJ 2 MG/ML DISP.SYRIN IV PRN ×3 (11:12→19:40)
[2019-02-01 12:00] VITALS: BP 122/91
[2019-02-01] MEDS: MORPHINE SULFATE IR 15 MG TABLET PO PRN ×2 (12:34→17:31)
--- NOTE | 2019-02-01 18:20 | NUR ---
CLOSING FAIRLY RESTED WITH PAIN MANAGEMENT L.ALL DUE MEDS ADMINISTERED.NO SEIZURE ACTIVITY NOTED.CALL LIGHT IN REACH,NEEDS ATTENDED.WILL ENDORSE TO DAY NURSE FOR CONTINUITY OF CARE
--- NOTE | 2019-02-01 19:10 | NUR ---
RN NOTES: RECEIVED AWAKE ON BED, A/OX 2-3, HE IS ALREADY ASKING FOR PAIN MEDICATION UPON ENDORSEMENT, OUTGOING RN EXPLAINED TO HIM WE NEED TO WAIT, THEN HE AGREED,INCONTINENT USES DIAPER AND URINAL, WITH NS AT 75 ML/HR ,RAC G#22 INTACT AND PATENT, UPON ENDORSEMENT SHOWED BY RN THAT HE HAS AN OPEN WOUND ON THE RIGHT UPPER CHEST AREA AND PER PATIENT HE HAD A SURGERY AROUND 3 YEARS BACK AND THERE IS REALLY LIKE AN OPEN WOUND THERE, AND WE CAN SEE SOME DRAINAGE COMING OUT WHEN HE BREATH IN AND OUT. HE IS LYING COMFORTABLY IN BED, BED LOW AN D LOCKED, CALL LIGHT WITHIN EASY REACH, FALL,SAFETY, SEIZURE AND ASPIRATION PRECAUTION OBSERVED.
--- NOTE | 2019-02-01 19:50 | NUR ---
RN NOTES: COMPLAINED OF PAIN 10/10, GENERALIZED, REQUESTING FOR HIS DILAUDID INJECTION, GIVEN PER PATIENT REQUEST, NON PHARMACOLOGIC INTERVENTION RENDERED, DIM LIT, AND WARM BLANKET PROVIDED, HE ASK FOR SANDWICH GIVEN TUNA AND JUICE
[2019-02-01 20:00] VITALS: BP 120/77
[2019-02-01] MEDS: CEFTRIAXONE 1 G in IV D5W 50 ML IV SCH (20:18)
[2019-02-01] MEDS: ATORVASTATIN 10 MG TABLET PO SCH (21:11)
[2019-02-01] MEDS: SENNOSIDES 8.6 MG TABLET PO SCH (21:11)
[2019-02-01] MEDS: TEMAZEPAM 15 MG CAPSULE PO PRN (21:12)
[2019-02-01] MEDS: IV NS 0.9% 1,000 ML IV PRN (21:14)
--- NOTE | 2019-02-01 21:18 | NUR ---
RN NOTES: IVF CONSUMED, REPLACE NEW BAG OF NS AT 75 ML/HR, REQUESTED FOR HIS SLEEPING PILL, GIVEN PER PATIENT REQUEST, HE PASS STOOL IN THE BATHROOM, WALKING WITH ASSISTANCE USING FRONT WHEEL WALKER , UPON RETURNING TO BED GIVEN ALL HIS DUE MEDICATION. CLEAN AND CHANGE.KEPT IN COMFORTABLE POSITION.CALL LIGHT WITHIN EASY REACH.
--- NOTE | 2019-02-01 23:04 | NUR ---
RN NOTES: AWAKE IN BETWEEN, CALLS AND NEEDS ATTENDED, ASSISTED TO THE BATHROOM, HE HAD ANOTHER BM, FORMED STOOL, KEPT ON CLOSE WATCH.
[2019-02-02] MEDS: HYDROMORPHONE INJ 2 MG/ML DISP.SYRIN IV PRN ×5 (00:50→23:43)
--- NOTE | 2019-02-02 00:57 | NUR ---
RN NOTES: HE WAS AWAKE AND REPOSITIONING HIMSELF, HE IS COMPLAINING OF SEVERE PAIN 10/10, GENERALIZED AND HE WANTS HIS DILAUDID, BP-110/60, PAIN MEDICATION GIVEN PER PATIENT REQUEST, NON PHARMACOLOGIC INTERVENTION RENDERED, KEPT COMFORTABLE IN BED, CALL LIGHT WITHIN EASY REACH.
--- NOTE | 2019-02-02 02:53 | NUR ---
RN NOTES: PATIENT GET UP FROM THE BED WITHOUT CALLING AND HE PROCEED TO THE BATHROOM HIS IV CONNECTION WAS ACCIDENTALLY PULLED OUT, SOME BLOOD CAME OUT OF THE IV CANNULA SITE, PATIENT CALLED AND RN IMMEDIATELY PROCEED TO HIS ROOM AND REINFORCE HIS DRESSING AND WAS ABLE TO STOP THE BLEEDING. PATIENT HAD BM. ASSISTED BACK TO BED, CLEAN AND CHANGE, IVF RESUMED ORDERED.
[2019-02-02] MEDS: MORPHINE SULFATE IR 15 MG TABLET PO PRN ×2 (03:01→12:24)
--- NOTE | 2019-02-02 03:05 | NUR ---
RN NOTES: CALLED ASKING FOR ANOTHER PAIN MEDICATION, HE VERBALIZED ABDOMINAL AND BACK PAIN /, HE SAID HIS INJECTION DID NOT WORK WELL, NOTIFIED CN IF ITS OK TO GIVE MORPHINE TABLET, LAST TIME HE RECEIVED WAS 1736,HE HAD INJECTION 2 HOURS AGO, PATIENT IS ALREADY DEMANDING FOR ANOTHER PAIN MEDICATION, MORPHINE SULFATE 15 MG P.O. GIVEN.
[2019-02-02 04:00] VITALS: BP 118/75
--- NOTE | 2019-02-02 06:22 | NUR ---
RN NOTES: ABLE TO REST AND SLEEP, KEPT MONITORED, NO SEIZURE NOTED, CALLS AND NEEDS ATTENDED, BED LOW AND LOCKED, CALL LIGHT WITHIN EASY REACH, ENDORSED FOR CONTINUITY OF CARE.
--- NOTE | 2019-02-02 06:49 | NUR ---
RN NOTES: PATIENT CALLED AND REQUEST FOR HIS PAIN MEDICATION PRIOR TO ENDORSEMENT TIME, HE SAID HE IS IN SEVRE PAIN 01/31 IN THE ABDOMEN AREA, DILAUDID 1MG GIVEN BP-118/75, ENDORSED FOR CONTINUITY OF CARE. Addendum: 02/02/19 at 0714 by JORGE A SOSA RN ADDED NOTES: LATEST WEIGHT-156.
--- NOTE | 2019-02-02 07:00 | NUR ---
RN OPENING NOTES: RECEIVED AWAKE ON BED, A/OX 2-3, HE IS ASKING FOR PAIN MEDICATION UPON ENDORSEMENT, PAIN MED TO BE GIVEN. USES DIAPER AND URINAL, WITH NS AT 75 ML/HR ,RAC G#22 INTACT AND PATENT, PT IS LYING COMFORTABLY IN BED, BED LOW AN D LOCKED, CALL LIGHT WITHIN EASY REACH, SIDE RAILS UPX2, FALL,SAFETY, SEIZURE AND ASPIRATION PRECAUTION OBSERVED.
--- NOTE | 2019-02-02 07:45 | NUR ---
RN MS CLOSING NOTE PT STILL A LITTLE BIT AGITATED. NEW IV PUT BY CHARGE NURSE. SAFETY PRECAUTION IN PLACE. BED LOCKED AND LOW, SIDE RIALS UP X3, BED ALARM ON AND CALL LIGHT WITHIN REACH. PAIN MED TO BE GIVEN BY COIL SPRING ASSEMBLER NURSE. ENDORSED TO PM NURSE FOR HANS.
[2019-02-02 08:00] VITALS: BP 135/75
[2019-02-02] MEDS: TAMSULOSIN 0.4 MG CAP.SR.24H PO SCH ×2 (08:50→16:45)
[2019-02-02] MEDS: GABAPENTIN 300 MG CAPSULE PO SCH ×3 (08:50→16:45)
[2019-02-02] MEDS: SERTRALINE HCL 25 MG TABLET PO SCH (08:50)
[2019-02-02] MEDS: AMLODIPINE BESYLATE 10 MG TABLET PO SCH (08:51)
[2019-02-02] MEDS: DULOXETINE HCL 30 MG CAPSULE.DR PO SCH (08:52)
[2019-02-02] MEDS: LamoTRIgine 100 MG TABLET PO SCH ×2 (08:52→21:53)
[2019-02-02] MEDS: DOCUSATE SODIUM 100 MG CAPSULE PO SCH ×2 (08:53→16:45)
[2019-02-02] MEDS: FINASTERIDE (5 MG) 5 MG TABLET PO SCH (08:54)
[2019-02-02] MEDS: PANTOPRAZOLE 40 MG TABLET.DR PO SCH (08:55)
[2019-02-02] MEDS: LEVETIRACETAM (250 MG) 250 MG TABLET PO SCH ×2 (08:59→21:53)
[2019-02-02] MEDS: FLUTICASONE/VILANTEROL 1 EACH BLST.W.DEV IH SCH (09:00)
--- NOTE | 2019-02-02 11:30 | NUR ---
MS RN NOTE PT IV SITE FOUND INFILTRATED. IV REMOVED AND NEW IV PLACED ON THE LEFT WRIST.
[2019-02-02 16:00] VITALS: BP 109/71
--- NOTE | 2019-02-02 16:55 | NUR ---
MS RN NOTE PT PULLED OUT THE IV NEW IV WILL BE PLACED.
--- NOTE | 2019-02-02 18:04 | NUR ---
MS RN NOTE PT IS SO AGITATED AND COMBATIVE. REMOVED THE DIAPER AND DID BOWEL MOVEMENT ON THE FLOOR. TRIED TO PUNCH THE NURSE AND REGIONAL FACILITIES MANAGER. CHARGE NURSE MADE AWARE. SITTER IS NEEDED.
--- NOTE | 2019-02-02 18:34 | NUR ---
RN MS NOTE TRIED TWICE TO PUT IV, PT IS VERY HARD STICK. WILL ASK CHARGE NURSE TO TRY IT.
--- NOTE | 2019-02-02 19:20 | NUR ---
MS RN NOTE ADELSO DOLL RN ABLE TO PLACE 22 G IN LEFT HAND.
--- NOTE | 2019-02-02 19:30 | NUR ---
MS RN NOTES RECEIVED PATIENT SITTING AT EDGE OF BED TRYING TO GET OUT. BED ALARM WENT OFF. REPORIENTED PATIENT. PATIENT WENT BACK TO BED BREATHING EVEN AND UNLABORED. NOT IN ANY DISTRESS, ON ROOM AIR. NO COMPLAINTS AT THIS TIME. SAFETY MEASURES IN PLACE, CALL LIGHT WITHIN REACH, BED IN LOW, LOCKED POSITION. WILL CONTINUE TO MONITOR ACCORDINGLY
[2019-02-02] MEDS: CEFTRIAXONE 1 G in IV D5W 50 ML IV SCH (19:32)
[2019-02-02] MEDS: ATORVASTATIN 10 MG TABLET PO SCH (21:53)
[2019-02-02] MEDS: TEMAZEPAM 15 MG CAPSULE PO PRN (21:53)
[2019-02-02] MEDS: SENNOSIDES 8.6 MG TABLET PO SCH (21:53)
[2019-02-03] MEDS: IV NS 0.9% 1,000 ML IV PRN (05:08)
[2019-02-03] MEDS: HYDROMORPHONE INJ 2 MG/ML DISP.SYRIN IV PRN ×5 (05:08→20:56)
--- NOTE | 2019-02-03 07:35 | NUR ---
MS RN NOTES PT IN BED A/OX3 WITH OCCASIONAL FORGETFULNESS. COMPLAINING OF ABDOMINAL PAIN. NO SOB NOTED AT THIS TIME. IV LINE PATENT AND FLUSHED WITH NS WELL. BED AT THE LOWEST POSITION AND LOCKED, CALL LIGHT WITHIN REACH. WILL CONTINUE TO MONITOR.
[2019-02-03 08:00] VITALS: BP 149/90
[2019-02-03] MEDS: AMLODIPINE BESYLATE 10 MG TABLET PO SCH (08:53)
[2019-02-03] MEDS: FINASTERIDE (5 MG) 5 MG TABLET PO SCH (08:54)
[2019-02-03] MEDS: SERTRALINE HCL 25 MG TABLET PO SCH (08:54)
[2019-02-03] MEDS: LamoTRIgine 100 MG TABLET PO SCH ×2 (08:54→21:29)
[2019-02-03] MEDS: PANTOPRAZOLE 40 MG TABLET.DR PO SCH (08:54)
[2019-02-03] MEDS: DULOXETINE HCL 30 MG CAPSULE.DR PO SCH (08:55)
[2019-02-03] MEDS: TAMSULOSIN 0.4 MG CAP.SR.24H PO SCH ×2 (08:55→17:00)
[2019-02-03] MEDS: DOCUSATE SODIUM 100 MG CAPSULE PO SCH ×2 (09:00→17:00)
[2019-02-03] MEDS: GABAPENTIN 300 MG CAPSULE PO SCH ×3 (09:00→18:19)
[2019-02-03] MEDS: LEVETIRACETAM (250 MG) 250 MG TABLET PO SCH ×2 (09:08→21:30)
[2019-02-03 16:00] VITALS: BP 112/80
[2019-02-03] MEDS: FLUTICASONE/VILANTEROL 1 EACH BLST.W.DEV IH SCH (16:23)
--- NOTE | 2019-02-03 19:45 | NUR ---
MS RN NOTES PT IN BED SITTING A/OX3. NO PAIN AND SOB NOTED AT THIS TIME. ALL NEEDS ATTENDED. IV LINE PATENT AND FLUSHED WITH NS WELL. BED AT THE LOWEST POSITION AND LOCKED, CALL LIGHT WITHIN REACH. NO MAJOR CHANGES NOTED DURING SHIFT. ENDORSED TO FLAT KNITTER NURSE.
[2019-02-03 20:00] VITALS: BP 116/85
[2019-02-03] MEDS: SENNOSIDES 8.6 MG TABLET PO SCH ×3 (21:27→22:00)
[2019-02-03] MEDS: ATORVASTATIN 10 MG TABLET PO SCH (21:29)
[2019-02-03] MEDS ORDERED: CEFAZOLIN 1 GM ONE (21:45)
--- NOTE | 2019-02-03 21:45 | NUR ---
All antibiotic dosage orders were given on time
[2019-02-03] MEDS: CEFAZOLIN 1 GM in IV D5W 50 ML IV SCH (21:48)
[2019-02-04] MEDS: HYDROMORPHONE INJ 2 MG/ML DISP.SYRIN IV PRN ×4 (00:33→12:58)
[2019-02-04 04:00] VITALS: BP 118/74
[2019-02-04] MEDS: IV NS 0.9% 1,000 ML IV PRN (05:46)
[2019-02-04] MEDS: CEFAZOLIN 1 GM in IV D5W 50 ML IV SCH ×2 (05:47→13:39)
[2019-02-04 08:00] VITALS: BP 120/72
[2019-02-04] MEDS: DULOXETINE HCL 30 MG CAPSULE.DR PO SCH (09:00)
[2019-02-04] MEDS: FINASTERIDE (5 MG) 5 MG TABLET PO SCH (09:00)
[2019-02-04] MEDS: TAMSULOSIN 0.4 MG CAP.SR.24H PO SCH (09:00)
[2019-02-04] MEDS: PANTOPRAZOLE 40 MG TABLET.DR PO SCH (09:00)
[2019-02-04] MEDS: AMLODIPINE BESYLATE 10 MG TABLET PO SCH (09:00)
[2019-02-04] MEDS: FLUTICASONE/VILANTEROL 1 EACH BLST.W.DEV IH SCH (09:00)
[2019-02-04] MEDS: DOCUSATE SODIUM 100 MG CAPSULE PO SCH (09:00)
[2019-02-04] MEDS: GABAPENTIN 300 MG CAPSULE PO SCH ×2 (09:00→13:52)
[2019-02-04] MEDS: LEVETIRACETAM (250 MG) 250 MG TABLET PO SCH (11:01)
[2019-02-04] MEDS: SERTRALINE HCL 25 MG TABLET PO SCH (11:03)
[2019-02-04] MEDS: LamoTRIgine 100 MG TABLET PO SCH (11:04)
--- NOTE | 2019-02-04 12:20 | NUR ---
MS RN NOTES PT REFUSED SOME OF THE MEDICATION (DOCUMENTED IN EMAR) AND HE STATED "I AM NOT TAKING THOSE MEDICATIONS". EXPLAINED THE INDICATION AND SIDE EFFECTS OF THE MEDICATION TO PT.
[2019-02-04 16:00] VITALS: BP 130/68
== END 2019-02-04 17:55 | DRG 872 ==
LOC: ER 14:57 → MEDSG1 17:41
PROVIDERS: ADMIT Internal Medicine; ATTEND Internal Medicine
DX: A41.9 Sepsis, unspecified organism (principal); N13.6 Pyonephrosis; N17.9 Acute kidney failure, unspecified; J44.9 Chronic obstructive pulmonary disease, unspecified; G40.909 Epilepsy, unspecified, not intractable, without status epilepticus; F17.210 Nicotine dependence, cigarettes, uncomplicated; G89.29 Other chronic pain; I10 Essential (primary) hypertension; N40.0 Benign prostatic hyperplasia without lower urinary tract symptoms; Z86.011 Personal history of benign neoplasm of the brain; B96.4 Proteus (mirabilis) (morganii) as the cause of diseases classified elsewhere; Z96.643 Presence of artificial hip joint, bilateral
CPT/HCPCS: 36415; 70450-TC; 74178; 76705-TC; 80048-TC; 80053-TC; 80061-TC; 80076-TC; 80185-TC; 81000-TC; 82962-TC; 83690-TC; 84443-TC; 85025-TC; 87081-TC; 87086-TC; 87186-TC; 93307-TC; A6253; G0378; J0690; J0696; J1170; J2270; J2405; J2543; J3490; J7030; J7050; J7060; Q9967

== ENCOUNTER 2019-06-28 21:22 | Emergency (ER) | payer BC, OTHER ==
[~2019-06-28] VITALS: Ht 180.3 cm; Wt 72.6 kg
[~2019-06-28 21:22] MED LIST changes: -ACET-73 PO; +ACET-868 PO; +ALBU18HF2 IH; -ALBU8.5H8 IH; -LAMO200T PO; +LAMO200T10 PO; +MORP15TA PO; -MORP15TA60 PO; -SACC250C PO; +TEMA15CA PO
--- NOTE | 2019-06-28 21:51 | NUR ---
patient came from [facility] bib ems from [facility] c/o pain when urinating. pt states that he had already peed before arrival. aaox3. no sob. breathing evenly and unlabored on room air. connected to monitor.
[2019-06-28 21:52] LABS: BASOPHILS # (AUTO) 0.1 /CMM (0.0-0.2); BASOPHILS % (AUTO) 1.1 % (0.0-2.0); HEMATOCRIT 42 % (39-51); HEMOGLOBIN 14.1 g/dL (13.5-17.5); LYMPHOCYTES # (AUTO) 2.4 /CMM (0.8-4.8); LYMPHOCYTES % (AUTO) 30.7 % (20.0-44.0); MEAN CORPUSCULAR HGB CONC 34 g/dl (31.0-36.0); MEAN CORPUSCULAR VOLUME 93 fL (80-96); MONOCYTES # (AUTO) 0.6 /CMM (0.1-1.30); MONOCYTES % (AUTO) 7.1 % (2.0-12.0); NEUTROPHILS # (AUTO) 4.3 /CMM (1.8-8.9); NEUTROPHILS % (AUTO) 56.1 % (43.0-81.0); PLATELET COUNT (AUTO) 169 /CMM (150-450); RED BLOOD CELL COUNT(AUTO) 4.46 MIL/uL (4.5-6.0); WHITE BLOOD COUNT (AUTO) 7.8 K/uL (4.3-11.0)
[2019-06-28 21:59] LABS: CALCIUM, SERUM 8.8 mg/dL (8.5-10.1); CREATININE 1.1 mg/dL (0.6-1.3); POTASSIUM 3.6 mmol/L (3.5-5.1)
[2019-06-28] MEDS ORDERED: IV NS 0.9% 500 ML BAG IV ONE (22:00)
[2019-06-28 22:05] LABS: ALBUMIN 3.8 g/dL (3.4-5.0); BILIRUBIN,DIRECT 0.2 mg/dL (0.0-0.2); BILIRUBIN,TOTAL 0.4 mg/dL (0.2-1.0)
--- NOTE | 2019-06-28 22:32 | NUR ---
urine collected and sent to lab
[2019-06-28 22:35] LABS: APPEARANCE,URINE Cloudy (CLEAR); BILIRUBIN,URINE Negative (NEGATIVE); BLOOD, URINE Moderate Ery/uL (NEGATIVE); COLOR,URINE Yellow (YELLOW); KETONES,URINE Negative (NEGATIVE); LEUKOCYTE ESTERASE ,URINE Large (NEGATIVE); NITRITE, URINE Negative (NEGATIVE); PH,URINE 8.5 (5.0-8.0); PROTEIN,URINE 100 mg/dl (NEGATIVE); UGLUCOSE Negative (NEGATIVE); UROBILINOGEN,URINE 0.2 EU/dL (0.2)
[2019-06-28 22:41] LABS: BACTERIA,URINE 2+ /HPF (None Seen); SQUAMOUS EPITHELIAL CELL,UR Few /HPF (None Seen); WBC,URINE 51-80 /HPF (0-3)
[2019-06-28] MEDS ORDERED: LEVOFLOXACIN (500MG) 500 MG TABLET ONE (23:29)
[2019-06-28] MEDS ORDERED: LEVOFLOXACIN (250MG) 250 MG TABLET ONE (23:29)
[2019-06-28] MEDS ORDERED: LEVOFLOXACIN (750 MG) 750 MG TABLET PO SCH (23:30)
--- NOTE | 2019-06-28 23:33 | NUR ---
CALLED AM [facility] FOR BLS DIRECTOR OF STUDENT AFFAIRS. ETA [phone]
[2019-06-29] MEDS ORDERED: MORPHINE SULFATE INJ 2 MG/ML DISP.SYRIN IV ONE (01:00)
--- NOTE | 2019-06-29 01:31 | NUR ---
REPORT GIVEN TO TRE LAY AT [facility].
--- NOTE | 2019-06-29 02:13 | NUR ---
PATIENT IS ASLEEP. NOT IN ANY DISTRESS. PT IS BREATHING EVENLY AND UNLABORED ON ROOM AIR. EASILY AROUSED THROUGH TACTILE AND VERBAL STIMULI. CONNECTED TO MONITOR. CALL LIGHT WITHIN REACH.
--- NOTE | 2019-06-29 04:22 | NUR ---
REPORT GIVEN TO TRANSPORT STAFF FOR HANS. AND TRANSFER RESPONSIBILITIES.
[2019-06-29 04:23] VITALS: BP 127/75
== END 2019-06-29 04:46 | disposition home or self-care (01) ==
LOC: ER 21:23
DX: N39.0 Urinary tract infection, site not specified (principal); G40.909 Epilepsy, unspecified, not intractable, without status epilepticus; J44.9 Chronic obstructive pulmonary disease, unspecified; Z98.890 Other specified postprocedural states; Z79.899 Other long term (current) drug therapy
CPT/HCPCS: 36415; 71045; 80048; 80076; 81001; 85025; 87081; 87086; 93005; 99285; J7040; 81000-TC; 87186-TC